=== PATIENT | male | born 1975 | race Caucasian/White ===

== ENCOUNTER 2021-02-14 16:56 | Emergency (ER) | payer MEDICARE, MEDICAID, SELFPAY ==
[2021-02-14 17:01] VITALS: BP 161/93; PULSE 81; RESP 20; TEMP 36.6; O2SAT 98
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
[2021-02-14 18:13] LABS: Bilirubin Negative (Negative); Blood Negative (Negative); Clarity Clear (Clear); Glucose Negative (Negative); Ketones Negative (Negative); Leukocyte Esterase Negative (Negative); Nitrite Negative (Negative); Urobilinogen 0.2 EU/dL (Up TO 0.2)
== END 2021-02-14 18:53 | disposition home or self-care (01) ==
PROVIDERS: Emergency Provider Physician Assistant
DX: N48.89 Other specified disorders of penis (principal); M79.672 Pain in left foot; K62.89 Other specified diseases of anus and rectum
CPT/HCPCS: 99283; 81003; 99282

== ENCOUNTER 2021-12-05 13:14 | Outpatient (REF) | payer MEDICARE, MEDICAID, SELFPAY ==
[2021-12-05 13:44] LABS: Bilirubin Negative (Negative); Blood Negative (Negative); Clarity Clear (Clear); Glucose Negative (Negative); Ketones Negative (Negative); Leukocyte Esterase Negative (Negative); Nitrite Negative (Negative); Specific Gravity 1.025 (1.005-1.025); Urobilinogen 0.2 EU/dL (Up TO 0.2)
== END 2021-12-05 13:15 | disposition home or self-care (01) ==
LOC: LBN 13:14
PROVIDERS: Visit Provider Psychiatry & Neurology Child & Adolescent Psychiatry
DX: F79 Unspecified intellectual disabilities (principal)
CPT/HCPCS: 81003

== ENCOUNTER 2021-12-08 15:45 | Inpatient (IN) | payer MEDICARE, MEDICAID, SELFPAY ==
[2021-12-08 15:50] VITALS: BP 129/88; PULSE 79; RESP 14; TEMP 36; O2SAT 94
--- NOTE | 2021-12-08 16:15 | DI.CT_ITS ---
Exam(s) CT HEAD WO EXAM: CT HEAD WO CLINICAL HISTORY: AMS. TECHNIQUE: Imaging Protocol: Axial computed tomography images with coronal and sagittal reformatted images were created and reviewed COMPARISON: No exams were available for comparison FINDINGS: The ventricular system is normal in appearance. No evidence of acute intracranial hemorrhage, mass effect, or midline shift. Note is made of poorly defined area decreased attenuation in the anterior temporal lobe on the left. This may represent an old infarct, however other etiologies including mass lesion or not excluded. Correlation with brain MRI including post contrast examination is recommended. The orbital structures are unremarkable. The temporal bone structures appear intact. Calvarium: Normal. Visualized Paranasal sinuses/Mastoids: Clear. IMPRESSION: Indeterminate low-attenuation anterior left temporal lobe focus. Mass not excluded. Additional eval uation with brain MRI including post contrast imaging recommended.. RADIATION DOSE DELIVERED: 1,953.35mGy.cm Total DLP 1,953.35mGy.cm Total DLP !Error CTDIvol DATA REPOSITORY: All CT scans at this facility are submitted to the National Radiology Data Registry (NRDR) Dose Index Registry (DIR) with the [employer] (A[employer]). RADIATION OPTIMIZATION: All CT scans at this facility use at least one of these dose optimization te chniques: automated exposure control; mA and/or kV adjustment per patient size (includes targeted exa ms where dose is matched to clinical indication); or iterative reconstruction.
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
[2021-12-08 16:50] LABS: Bilirubin Negative (Negative); Blood Negative (Negative); Clarity Clear (Clear); Glucose Negative (Negative); Ketones Negative (Negative); Leukocyte Esterase Negative (Negative); Nitrite Negative (Negative); Urobilinogen 0.2 EU/dL (Up TO 0.2)
[2021-12-08 16:57] LABS: Abs Immature Grans 0.02 10^3/uL (0.0-0.06); Absolute Basophil Count 0.04 10^3/uL (0.0-0.2); Absolute Eosinophil Count 0.34 10^3/uL (0.0-0.7); Absolute Lymphocyte Count 1.92 10^3/uL (1.2-3.4); Absolute Monocyte Count 0.57 10^3/uL (0.1-0.8); Absolute Neutrophil Count 3.75 10^3/uL (1.2-6.7); Basophils % 0.6; Eosinophils % 5.1; HCT 43.8 % (40.0-50.0); HGB 13.6 g/dL (13.5-17.5); Immature Grans % 0.3; Lymphocytes % 28.9; MCH 28.5 pg (27.0-33.0); MCHC 31.1 % (32.0-36.0); MCV 91.6 fL (80-95); MPV 9.4 fL (8.0-11.0); Monocytes % 8.6; Neutrophils % 56.5; Nucleated RBC 0 %; Platelet Count 308 10^3/uL (130-400); RBC 4.78 10^6/uL (4.36-5.78); RDW 13.3 % (11.8-14.1); RDW-SD 45.2 fL; WBC 6.64 10^3/uL (4.4-10.8)
[2021-12-08 16:59] LABS: Source Nasal/Nares
[2021-12-08 17:03] LABS: *AMPHETAMINES SCREEN URINE Negative (Negative); *BARBITURATES SCREEN URINE Negative (Negative); *BENZODIAZEPINES SCREEN URINE Negative (Negative); Cannabinoids THC Negative (Negative); Cocaine Screen,Urine Negative (Negative); METHADONE URINE SCREEN Negative (Negative); OPIATES URINE SCREEN Negative (Negative)
[2021-12-08 17:06] LABS: Tricyclic Antidepressants Negative (Negative)
[2021-12-08 17:15] LABS: ALT 37 U/L (16-63); AST 21 U/L (15-37); Albumin 3.9 g/dL (3.4-5.0); Alkaline Phosphatase 127 U/L (46-116); Anion Gap 6.6 mmol/L (3-11); BUN 20 mg/dL (7-18); Bilirubin, Total 0.3 mg/dL (0.2-1.0); CO2 29.4 mmol/L (21.0-32.0); CREATININE 0.9 mg/dL (0.70-1.30); Calcium 9.3 mg/dL (8.5-10.1); Chloride 102 mmol/L (98-107); Creatine Kinase 93 U/L (39-308); Glucose 99 mg/dL (74-106); Potassium 3.7 mmol/L (3.5-5.1); Sodium 138 mmol/L (136-145); TSH (W/Ref FT4) 2.62 uIU/mL (0.36-3.74); Total Protein 7.9 g/dL (6.4-8.2)
[2021-12-08 17:22] LABS: Acetaminophen < 2 ug/mL (10-30); Salicylate < 2.8 mg/dL (<2.8)
--- NOTE | 2021-12-08 17:23 | DI.VRAD_ITS ---
PROCEDURE INFORMATION: Exam: CT Head Without Contrast Exam date and time: 12/08/2021 5:02 PM Age: 46 years old Clinical indication: Altered mental status/memory loss; Patient HX: AMS TECHNIQUE: Imaging protocol: Computed tomography of the head without contrast. COMPARISON: No relevant prior studies available. FINDINGS: Brain: There is a 12 mm diameter area of decreased density within the inferior and anterior aspect of the left temporal cortex. Margins are ill-defined. There is no associated mass effect or midline shift.. No hemorrhage. Unremarkable white matter. Cerebral ventricles: No ventriculomegaly. 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 is incidentally noted. Paranasal sinuses: Visualized sinuses are unremarkable. No fluid levels. Mastoid air cells: Visualized mastoid air cells are well aerated. Bones/joints: Unremarkable. No acute fracture. Soft tissues: Unremarkable. IMPRESSION: Low-density lesion within the left temporal cortex possibly representing an area of old infarct. However, subacute infarct, neoplasm, or infection cannot be excluded. I recommend further evaluation with MRI. Dictated and Authenticated by: Ghassan Best MD. Ordering:MERYL Weiss MD
[2021-12-08 17:24] LABS: ETHANOL BLOOD < 3.0 mg/dL (<10)
[2021-12-08 17:38] LABS: COVID-19 PCR Negative (Negative)
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
[2021-12-08 21:17] VITALS: BP 127/70; PULSE 75; RESP 18; TEMP 36.7; O2SAT 99
[2021-12-08] MEDS: Haloperidol 1 MG TAB 3 MG PO (23:18)
[2021-12-08] MEDS: risperiDONE 1 MG TAB 3 MG PO (23:18)
[2021-12-08] MEDS: busPIRone 5 MG TAB PO (23:18)
[2021-12-08] MEDS: Melatonin 3 MG TAB 6 MG PO (23:18)
[2021-12-08 23:50] VITALS: BP 107/61; PULSE 65; RESP 18; TEMP 36.4; O2SAT 95
[2021-12-08 23:55] VITALS: BP 107/61; PULSE 65; RESP 18; TEMP 36.4; O2SAT 95
[2021-12-09] MEDS: Citalopram 20 MG TAB 40 MG PO ×2 (01:06→21:45)
[2021-12-09] MEDS: traZODone 100 MG TAB PO (01:06)
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
[2021-12-09 07:20] VITALS: BP 123/77; PULSE 65; RESP 20; TEMP 36.4; O2SAT 95
[2021-12-09] MEDS: Tacrolimus 0.5 MG CAP 1 MG PO ×2 (08:29→20:06)
[2021-12-09] MEDS: Omeprazole 20 MG CAPCR PO (08:29)
[2021-12-09] MEDS: busPIRone 5 MG TAB PO ×2 (08:30→20:08)
[2021-12-09] MEDS: Ferrous Sulfate 325 MG TAB PO (08:30)
[2021-12-09] MEDS: Haloperidol 1 MG TAB 3 MG PO ×3 (08:30→20:07)
[2021-12-09] MEDS: risperiDONE 1 MG TAB 3 MG PO ×2 (08:30→20:07)
[2021-12-09 08:38] VITALS: PULSE 65
[2021-12-09] MEDS: Acetaminophen 500 MG TAB PO (09:33)
[2021-12-09 15:28] VITALS: PULSE 71
[2021-12-09 16:05] VITALS: BP 126/80; PULSE 63; RESP 20; TEMP 36.3; O2SAT 98
--- NOTE | 2021-12-09 17:19 | W.PM.PROGNOT ---
Date of Service Date of service: 12/09/21 Time of Service: 17:19 Assessment and Plan Assessment and plan (1) Delusional thoughts: Status: Acute Assessment and plan: There is no evidence of an acute infection to suggest a toxic metabolic component. It is possible that we are witnessing the neuropsychiatric aspect of his tuberous sclerosis diagnosis and it is also possible that there is a behavioral component associated with change of residential environment. At this point, [facility]/mental health should be considering a disposition for him. Meanwhile, we will obtain an EEG and repeat his MRI of the brain. 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 Followed by neurology at [facility]. Obtain MRI, EEG. Will discuss with radiology if the MRI should be with contrast. 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 Not causing current issues. (4) Seizure disorder: Assessment and plan: As above Keep on tele to monitor for seizures, though likelihood of this is low. (5) Kidney transplant recipient: Status: Chronic Assessment and plan: Continue immunosuppressive therapy. No evidence of acute infection. (6) DVT prophylaxis: Status: Acute Assessment and plan: SC lovenox (7) Discharge planning issues: Status: Acute Assessment and plan: Full code [facility] client. Disposition by [facility] Subjective Subjective Interval history since last seen: Judd denies headache, dizziness, shortness of breath, nausea. At the same time, he does report R-sided chest pain which is reproducible with palpation. He also says that he feels like his lungs are not filling up with air, but yet he is not short of breath. He has not required oxygen. He has not had any behavioral outbursts. He has not had any seizures. I discussed the case with [facility] where the patient get his care, both from urology for the h/o tuberous sclerosis, and from nephrology/transplant for his h/o kidney transplant. The patient has a h/o seizure d/o with no known seizures in 20 years. Neurology feels it is plausible he could have delusional postictal state and that he would benefit from an MRI of the brain which he was supposed to have. The lucency seen on our MRI is not new and represents a tuber. It is also unlikely that the patient did not have delusions before as he has been on haldol and risperidone for a while. His current behavior could also be adjustment to a new [facility] home since he was released from encarceration on 11/27/21. Exam Narrative Exam Narrative: General: Pleasant middle-aged male with a speech impediment, A&Ox2, poor history provider, able to move all 4 extremities, calm, cooperative HEENT: EOMI, MMM Heart: RRR, no m/r/g Lungs: nonlabored breathing Abdomen: soft, nontender, nondistended Extremities: no edema BLEs Objective Last Vital Signs Temp 36.3 C L 12/09/21 16:05 Pulse 63 12/09/21 16:05 Resp 20 12/09/21 16:05 BP 126/80 12/09/21 16:05 Pulse Ox 98 12/09/21 16:05 Laboratory Results - last 24 hr 12/08/21 12/08/21 12/08/21 16:42 16:42 16:55 Salicylates < 2.8 Acetaminophen < 2 Ethyl Alcohol < 3.0 SARS-CoV-2 (PCR) Negative
--- NOTE | 2021-12-09 19:10 | CMPROGNOTE_ITS ---
- If Service Date Differs Date of service: 12/09/21 Time of Service: 19:10 Care Management Progress Note S/O: Judd was sitting up in bed when CM met with him. His guardian, Anitha, was in the room visiting. Judd reported that he feels safe at [facility], but that he has been having nightmares since he was in assisted. Per report, Judd was incarcerated for 9 months for simple assault and disorderly conduct. He started having delusions/hallucinations while incarcerated. His IDDS continuous pillowcase cutter, Nely Duckworth ([phone]), described how he has been claiming that a previous contracting support specialist member was his and at times he believed she had , among other things, all of which were not accurate. He was released on 11/27/21 into the care of IDDS, and has been living in a home which is staffed by [facility]. He has been displaying aggression and delusions since his release. He has been an IDDS client at [facility] since 1985. His care team had been attempting to secure psychiatric stabilization for Judd while he was incarcerated with no success. Referrals are pending at [facility], [facility] and [facility]. Once he is discharged from inpatient psychiatric stabilization, he will return to his staffed home in [place]. CM will continue to follow. A: Judd is a 46 year old male admitted to [facility] on 12/08/21 with delusional thoughts. P: Judd is voluntary, seeking inpatient psychiatric stabilization. Referrals have been sent to [facility], [facility], and [facility]. He will likely transport via [facility]. He will follow up with his PCP and discharge plan of care. CM will continue to follow.
--- NOTE | 2021-12-09 19:10 | PDOC.CMPRO ---
- If Service Date Differs Date of service: 12/09/21 Time of Service: 19:10 Care Management Progress Note S/O: Judd was sitting up in bed when CM met with him. His guardian, Anitha, was in the room visiting. Judd reported that he feels safe at [facility], but that he has been having nightmares since he was in longterm. Per report, Judd was incarcerated for 9 months for simple assault and disorderly conduct. He started having delusions/hallucinations while incarcerated. His IDDS case specialist, Nely Duckworth ([phone]), described how he has been claiming that a previous print support specialist member was his and at times he believed she had , among other things, all of which were not accurate. He was released on 11/27/21 into the care of IDDS, and has been living in a home which is staffed by [facility]. He has been displaying aggression and delusions since his release. He has been an IDDS client at [facility] since 1985. His care team had been attempting to secure psychiatric stabilization for Judd while he was incarcerated with no success. Referrals are pending at [facility], [facility] and [facility]. Once he is discharged from inpatient psychiatric stabilization, he will return to his staffed home in [place]. CM will continue to follow. A: Judd is a 46 year old male admitted to [facility] on 12/08/21 with delusional thoughts. P: Judd is voluntary, seeking inpatient psychiatric stabilization. Referrals have been sent to [facility], [facility], and [facility]. He will likely transport via [facility]. He will follow up with his PCP and discharge plan of care. CM will continue to follow.
--- NOTE | 2021-12-09 19:27 | CMSP_ITS ---
- If Service Date Differs Date of service: 12/09/21 Time of Service: 19:28 Care Management Safety Plan Status: Voluntary - Guarianship if Applicable Guardianship: [facility] (Anitha Harmon) - Reason for Wait Reason for Wait: Inpatient Admission VOLUNTARY FOR INPATIENT PSYCHIATRIC STABILIZATION. Patient is appropriate in all interactions since arriving at [facility]; Pt has demonstrated appropriate coping and communication skills, has articulated his or her needs and concerns and is fully engaged during staff interactions. Safety plan has been established with patient, and care team, to adhere to pat ient goals, identify restrictions based on behavioral status, address nutrition, and determine allowed personal belongings, tools for hygiene and personal care. Determine level of activity including ambulation, level of supervision, visitors, and determine privileges based on behaviors and level of engagement by pt. SAFETY PLAN: 1. Will remain on suicide precautions. In Paper Clothes 2. Will remain in room under direct supervision of one-on-one staff at all times provided by [employer]; JONA, GARMENT TURNER workforce investment act career manager. 3. May have paper cups, plates, finger foods as well as a cardboard spoon with which to eat meals. 4. Follow [facility] Management of the Admitted Behavioral Health Patient policy. 5. Comfort bath system only, shower permitted with escort at RN discretion. 6. Personal belongings-soft items permitted at RN discretion. 7. Visitors- limited to his guardian, Anitha Harmon, assistant case manager, Nely Duckworth, and other software support technician from [facility], at RN discretion. 8. Activities: soft cart items approved per RN discretion. 9. Bathroom privileges with escort in the ED, available in room without limitation on M/S. 10. Phone: incoming/outgoing via cordless phone at RN discretion. 11. Due to VOLUNTARY status, if patient wishes to leave [facility], staff will contact [facility] Crisis Screener ([phone]) and On-Call Earth Science Teacher ([phone]) as soon as possible. In the event of elopement, notify [facility] Police ([phone]). Patient is currently voluntarily at [facility] and seeking inpatient admission when a bed becomes available. [facility] Frontline Pierogi Maker will continue seeking placement. Please contact the [place] Waistline Joiner Earth Science Teacher ([phone]) and [facility] Pierogi Maker ([phone]) for any needed changes in the Safety Plan. Safety plan has been provided to interdepartmental care team.
--- NOTE | 2021-12-09 19:27 | PDOC.CMSAFE ---
- If Service Date Differs Date of service: 12/09/21 Time of Service: 19:28 Care Management Safety Plan Status: Voluntary - Guarianship if Applicable Guardianship: OPG (Anitha Harmon) - Reason for Wait Reason for Wait: Inpatient Admission VOLUNTARY FOR INPATIENT PSYCHIATRIC STABILIZATION. Patient is appropriate in all interactions since arriving at [facility]; Pt has demonstrated appropriate coping and communication skills, has articulated his or her needs and concerns and is fully engaged during staff interactions. Safety plan has been established with patient, and care team, to adhere to patient goals, identify restrictions based on behavioral status, address nutrition, and determine allowed personal belongings, tools for hygiene and personal care. Determine level of activity including ambulation, level of supervision, visitors, and determine privileges based on behaviors and level of engagement by pt. SAFETY PLAN: 1. Will remain on suicide precautions. In Paper Clothes 2. Will remain in room under direct supervision of one-on-one staff at all times provided by [employer]; JONA, PATIENT COORDINATOR supervisor inspecting. 3. May have paper cups, plates, finger foods as well as a cardboard spoon with which to eat meals. 4. Follow [facility] Management of the Admitted Behavioral Health Patient policy. 5. Comfort bath system only, shower permitted with escort at RN discretion. 6. Personal belongings-soft items permitted at RN discretion. 7. Visitors- limited to his guardian, Anitha Harmon, caser, Nely Duckworth, and other manufacturing support engineer from [facility], at RN discretion. 8. Activities: soft cart items approved per RN discretion. 9. Bathroom privileges with escort in the ED, available in room without limitation on M/S. 10. Phone: incoming/outgoing via cordless phone at RN discretion. 11. Due to VOLUNTARY status, if patient wishes to leave [facility], staff will contact [facility] Crisis Screener ([phone]) and On-Call Freight Tallier ([phone]) as soon as possible. In the event of elopement, notify [facility] Police ([phone]). Patient is currently voluntarily at [facility] and seeking inpatient admission when a bed becomes available. [facility] Frontline Manager Assisted Living will continue seeking placement. Please contact the Dough Mixing Machine Operator Freight Tallier ([phone]) and [facility] Manager Assisted Living ([phone]) for any needed changes in the Safety Plan. Safety plan has been provided to interdepartmental care team.
[2021-12-09] MEDS: Mycophenolate Mofetil 250 MG CAP PO (20:08)
[2021-12-09] MEDS: LORazepam 1 MG TAB PO (21:44)
[2021-12-09] MEDS: Prazosin 1 MG CAP 2 MG PO (21:45)
[2021-12-09] MEDS: traZODone 50 MG TAB 100 MG PO (21:45)
[2021-12-10] VITALS (10 sets, daily range): BP systolic 105–123; BP diastolic 67–82; PULSE 55–85; RESP 14–19; TEMP 35.9–36.7; O2SAT 94–98
[2021-12-10 07:33] LABS: Platelet Count 278 10^3/uL (130-400)
[2021-12-10] MEDS: Acetaminophen 500 MG TAB PO ×2 (08:22→15:42)
[2021-12-10] MEDS: Enoxaparin 40 MG/0.4 ML SYR SC (08:23)
[2021-12-10] MEDS: busPIRone 5 MG TAB PO ×2 (08:23→20:26)
[2021-12-10] MEDS: Ferrous Sulfate 325 MG TAB PO (08:24)
[2021-12-10] MEDS: Haloperidol 1 MG TAB 3 MG PO ×3 (08:24→20:26)
[2021-12-10] MEDS: risperiDONE 1 MG TAB 3 MG PO ×2 (08:25→20:26)
[2021-12-10] MEDS: Mycophenolate Mofetil 250 MG CAP PO ×2 (08:25→20:25)
[2021-12-10] MEDS: LORazepam 0.5 MG TAB PO ×3 (08:25→19:35)
[2021-12-10] MEDS: Omeprazole 20 MG CAPCR PO (08:25)
[2021-12-10] MEDS: Tacrolimus 0.5 MG CAP 1 MG PO (08:26)
--- NOTE | 2021-12-10 12:31 | PDOC.CMPRO ---
- If Service Date Differs Date of service: 12/10/21 Time of Service: 12:31 Care Management Progress Note S/O: Judd was sitting up in bed when CM met with him. He stated that he is doing well today. He asked if he would be going to a hospital in [place]. CM reported that per MD, he is not medically cleared at this time. Once he becomes medically cleared, he will likely transport to an inpatient psychiatric facility, but the disposition has not yet been determined. He expressed concern about being homeless, and CM reassured him that per [facility], he will not be homeless, as they have a plan for housing once he is ready to return to the community. He stated that he liked the magazines that CM brought in to him yesterday, and he has not used the coloring book. He is keeping himself busy with cartoons currently. CM will continue to follow. A: Judd is a 46 year old male admitted to [facility] on 12/08/21 with delusional thoughts. P: Judd is voluntary, seeking inpatient psychiatric stabilization. Referrals have been sent to [facility], [facility], and [facility]. He will likely transport via [employer]. He will follow up with his PCP and discharge plan of care. CM will continue to follow. - Guardianship if Applicable Guardianship: EMILIANO (Anitha Harmon)
--- NOTE | 2021-12-10 12:34 | CMSP_ITS ---
- If Service Date Differs Date of service: 12/10/21 Time of Service: 12:35 Care Management Safety Plan Status: Voluntary - Guarianship if Applicable Guardianship: OPG (Anitha Harmon) - Reason for Wait Reason for Wait: Inpatient Admission, Medical Clearance (MRI, EEG on Saturday) VOLUNTARY FOR INPATIENT PSYCHIATRIC STABILIZATION. Patient is appropriate in all interactions since arriving at [facility]; Pt has demonstrated appropriate coping and communication skills, has articulated his or her needs and concerns and is fully engaged during staff interactions. Safety plan has been established with patient, and care team, to adhere to patient goals, identify restrictions based on behavioral status, address nutrition, and determine allowed personal belongings, tools for hygiene and personal care. Determine level of activity including ambulation, level of supervision, visitors, and determine privileges based on behaviors and level of engagement by pt. SAFETY PLAN: 1. Will remain on suicide precautions. In Paper Clothes 2. Will remain in room under direct supervision of one-on-one staff at all times provided by [employer]; JONA, RISK MODELER air cargo specialist supervisor. 3. May have paper cups, plates, finger foods as well as a cardboard spoon with which to eat meals. 4. Follow [facility] Management of the Admitted Behavioral Health Patient policy. 5. Comfort bath system only, shower permitted with escort at RN discretion. 6. Personal belongings-soft items permitted at RN discretion. 7. Visitors- limited to his guardian, Anitha Harmon, case aide, Nely Duckworth, and other administrative support technician from [facility], at RN discretion. 8. Activities: soft cart items approved per RN discretion. 9. Bathroom privileges with escort in the ED, available in room without limitation on M/S. 10. Phone: incoming/outgoing via cordless phone at RN discretion. 11. Due to VOLUNTARY status, if patient wishes to leave [facility], staff will contact [facility] Crisis Screener ([phone]) and On-Call Mental Health Counselor ([phone]) as soon as possible. In the event of elopement, notify [place] [employer] ([phone]). Patient is currently voluntarily at [facility] and seeking inpatient admission when a bed becomes available. [facility] Frontline Restaurant Management Internship will continue seeking placement. Please contact the User Interface Developer Mental Health Counselor ([phone]) and [facility] Restaurant Management Internship ([phone]) for any needed changes in the Safety Plan. Safety plan has been provided to interdepartmental care team.
--- NOTE | 2021-12-10 15:51 | W.PM.PROGNOT ---
Date of Service Date of service: 12/10/21 Time of Service: 15:52 Assessment and Plan Assessment and plan (1) Delusional thoughts: Status: Acute Assessment and plan: There is no evidence of an acute infection to suggest a toxic metabolic component. ? neuropsychiatric aspect of his tuberous sclerosis diagnosis vs post-ictal state vs a behavioral component associated with change of residential environment. This has been going for several months. Await EEG, MRI, neurology consult. At this point, [facility]/mental health should be considering a disposition for him. 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 Followed by neurology at [facility]. Obtain MRI, EEG. Await neurology consult. 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 Not causing current issues. (4) Seizure disorder: Assessment and plan: As above Keep on tele to monitor for seizures, though likelihood of this is low. For EEG. (5) Kidney transplant recipient: Status: Chronic Assessment and plan: Continue immunosuppressive therapy. Checking tacrolimus level. No evidence of acute infection. (6) DVT prophylaxis: Status: Acute Assessment and plan: SC lovenox (7) Discharge planning issues: Status: Acute Assessment and plan: Full code [facility] client. Disposition by [facility] Subjective Subjective Interval history since last seen: Mr Corey reports pains in various parts of his body (R knee, R shoulder, R chest). He agrees to take tylenol. Denies dizziness, shortness of breath, nausea. Exam Narrative Exam Narrative: General: Pleasant middle-aged male with a speech impediment, A&Ox2, appears to be in good spirits, asks appropriate questions about his tests tomorrow HEENT: EOMI, MMM, poor dentition Heart: RRR, no m/r/g Lungs: CTAB Abdomen: soft, nontender, nondistended Extremities: no edema BLEs Objective Last Vital Signs Temp 36.6 C 12/10/21 11:53 Pulse 66 12/10/21 11:53 Resp 16 12/10/21 11:53 BP 108/69 12/10/21 11:53 Pulse Ox 97 12/10/21 11:53 Laboratory Results - last 24 hr 12/10/21 07:00 Plt Count 278
[2021-12-10] MEDS: Tacrolimus 0.5 MG CAP 2 MG PO (20:26)
[2021-12-10] MEDS: diphenhydrAMINE 25 MG CAP PO (20:26)
[2021-12-10] MEDS: traZODone 50 MG TAB 100 MG PO (22:46)
[2021-12-10] MEDS: Prazosin 1 MG CAP 2 MG PO (22:46)
[2021-12-10] MEDS: Citalopram 20 MG TAB 40 MG PO (22:47)
[2021-12-10] MEDS: LORazepam 1 MG TAB PO (22:47)
[2021-12-11 07:40] VITALS: BP 132/84; PULSE 82; RESP 24; TEMP 36.7; O2SAT 96
[2021-12-11] MEDS: Acetaminophen 500 MG TAB PO ×2 (07:59→13:05)
[2021-12-11] MEDS: busPIRone 5 MG TAB PO ×2 (08:00→19:35)
[2021-12-11] MEDS: Enoxaparin 40 MG/0.4 ML SYR SC (08:00)
[2021-12-11] MEDS: Haloperidol 1 MG TAB 3 MG PO ×3 (08:01→19:35)
[2021-12-11] MEDS: Ferrous Sulfate 325 MG TAB PO (08:01)
[2021-12-11] MEDS: risperiDONE 1 MG TAB 3 MG PO ×2 (08:02→19:35)
[2021-12-11] MEDS: Omeprazole 20 MG CAPCR PO (08:02)
[2021-12-11] MEDS: LORazepam 0.5 MG TAB PO ×4 (08:02→18:52)
[2021-12-11] MEDS: Tacrolimus 0.5 MG CAP 1 MG PO (08:03)
[2021-12-11] MEDS: Mycophenolate Mofetil 250 MG CAP PO ×2 (08:04→19:34)
[2021-12-11 13:37] LABS: Tacrolimus 2.6 ng/mL (See Note)
--- NOTE | 2021-12-11 14:45 | PDOC.EEG_ITS ---
Neurology EEG EEG: [facility] Department of Neurology INPATIENT EEG REPORT Date of Recordin12/11/21 Interpreting Physician: Dr. Lyly Wells Reason for study: Mr. Corey is a 46 year-old man with tuberous sclerosis, cognitive developmental delay, and remote seizures admitted with increasing delusions/hallucinations. Current Medications: Current Medications Acetaminophen (Acetaminophen 500 Mg Tab) 500 mg PO TID PRN PRN Last Admin: 12/11/21 13:05 Dose: 500 mg Buspirone HCl (Buspirone 5 Mg Tab) 5 mg PO BID [facility] Last Admin: 12/11/21 08:00 Dose: 5 mg Citalopram Hydrobromide (Citalopram 20 Mg Tab) 40 mg PO HS [facility] Last Admin: 12/10/21 22:47 Dose: 40 mg Enoxaparin Sodium (Enoxaparin 40 Mg/0.4 Ml Syr) 40 mg SC DAILY [facility] Last Admin: 12/11/21 08:00 Dose: 40 mg Ferrous Sulfate (Ferrous Sulfate 325 Mg Tab) 325 mg PO DAILY [facility] Last Admin: 12/11/21 08:01 Dose: 325 mg Haloperidol (Haloperidol 1 Mg Tab) 3 mg PO TID [facility] Last Admin: 12/11/21 13:05 Dose: 3 mg Lactase (Lactase Enzyme Cap) 1 cap PO TID PRN PRN Lidocaine (Lidocaine 5% Patch) 1 patch TD DAILY PRN PRN Lorazepam (Lorazepam 1 Mg Tab) 1 mg PO HS [facility] Last Admin: 12/10/21 22:47 Dose: 1 mg Lorazepam (Lorazepam 0.5 Mg Tab) 0.5 mg PO BID@0830,1200 [facility] Last Admin: 12/11/21 13:05 Dose: 0.5 mg Lorazepam (Lorazepam 0.5 Mg Tab) 0.5 mg PO BID PRN PRN Last Admin: 12/11/21 13:05 Dose: 0.5 mg Melatonin (Melatonin 3 Mg Tab) 6 mg PO HS PRN PRN Mycophenolate Mofetil (Mycophenolate Mofetil 250 Mg Cap) 250 mg PO BID [facility] Last Admin: 12/11/21 08:04 Dose: 250 mg Omeprazole (Omeprazole 20 Mg Capcr) 20 mg PO DAILY@0730 [facility] Last Admin: 12/11/21 08:02 Dose: 20 mg Prazosin HCl (Prazosin 1 Mg Cap) 2 mg PO HS [facility] Last Admin: 12/10/21 22:46 Dose: 2 mg Risperidone (Risperidone 1 Mg Tab) 3 mg PO BID [facility] Last Admin: 12/11/21 08:02 Dose: 3 mg Tacrolimus (Tacrolimus 0.5 Mg Cap) 1 mg PO DAILY [facility] Last Admin: 12/11/21 08:03 Dose: 1 mg Tacrolimus (Tacrolimus 0.5 Mg Cap) 2 mg PO QPM [facility] Last Admin: 12/10/21 20:26 Dose: 2 mg Trazodone HCl (Trazodone 50 Mg Tab) 100 mg PO HS [facility] Last Admin: 12/10/21 22:46 Dose: 100 mg METHODS: A 21 channel digitized electroencephalogram was performed in the [facility] Med/Surg Floor or ICU. The 10/20 international system of electrode placement was used and bipolar and referential electrode montages were recorded. In addition to EEG the patient was monitored for EKG and lateral/vertical eye movements. Activation procedures of photic stimulation and hyperventilation were performed if applicable. Video was used during activation procedures and during events where applicable. The duration of the recording was 30 minutes. DESCRIPTION OF EEG: The patient was noted to be awake only during the recording. During maximal wakefulness a 9-Hz posterior background rhythm was present which was well- modulated, symmetrical, reactive to eye opening, and of moderate voltage. With eye opening the background activity changed to a low voltage mixture of alpha, beta, and occasional theta range frequencies. Faster frequencies were present in the bilateral anterior head regions. There was a normal anterior-posterior voltage gradient. No drowsiness or stage II sleep was recorded. There were rare left frontal, low amplitude, sharp-waves at F7. These were not clearly epileptiform. Activating Procedures: Photic stimulation was stopped early at patient request. No driving response was seen. Hyperventilation was not performed. EKG: EKG revealed normal sinus rhythm. INTERPRETATION: This EEG is normal during the awake state as well as during photic stimulation. There were rare left frontal sharp-waves that were not clearly epileptic. PRIOR EEG: -EEG (02.17.15 at [facility]): diffuse slowing. CLINICAL CORRELATION: No focal regions of cerebral dysfunction or epileptiform activity was present. Epilepsy remains a clinical diagnosis and a normal EEG does not rule out epilepsy. Clinical correlation is advised. Lyly Wells MD
--- NOTE | 2021-12-11 15:08 | PGE_ITS ---
Date of Service Date of service: 12/11/21 Time of Service: 15:09 Assessment and Plan Assessment and plan (1) Delusional thoughts: Status: Acute Assessment and plan: There is no evidence of an acute infection to suggest a toxic metabolic component. ? neuropsychiatric aspect of his tuberous sclerosis diagnosis vs post-ictal state vs a behavioral component associated with change of residential environment. This has been going for several months. Await EEG, Neuro consult. MRI; inquiry being made to bilingual patient support caseworker to see if there are contraindications to an MRI; patient is not a reliable historian. At this point, [facility]/mental health should be considering a disposition for him. 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 Followed by neurology at [facility]. Obtain MRI, EEG. Await neurology consult. 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 Not causing current issues. (4) Seizure disorder: Assessment and plan: As above Keep on tele to monitor for seizures, though likelihood of this is low. EEG pending. (5) Kidney transplant recipient: Status: Chronic Assessment and plan: Continue immunosuppressive therapy. Tacrolimus level 2.6. No evidence of acute infection. (6) DVT prophylaxis: Status: Acute Assessment and plan: SC lovenox (7) Discharge planning issues: Status: Acute Assessment and plan: Full code [facility] client. Disposition by [facility] Subjective Subjective Patient reports: no new complaints, tolerating a regular diet and afebrile; denies nausea, vomiting or shortness of breath Exam Narrative Exam Narrative: General: Pleasant at the time of my visit. Lying in bed. + speech impediment, A&Ox2, appears to be in good spirits. HEENT: EOMI, MMM, poor dentition Heart: RRR, no m/r/g Lungs: CTAB Abdomen: soft, nontender, nondistended Skin: no rashes, lesions, RLQ well-healed surgical scar. Extremities: no edema BLEs Psych: affect; blunted. Poor insight. GI Palpation: no masses Objective Last Vital Signs Temp 36.7 C 12/11/21 07:40 Pulse 82 12/11/21 07:40 Resp 24 12/11/21 07:40 BP 132/84 12/11/21 07:40 Pulse Ox 96 12/11/21 07:40 Laboratory Results - last 24 hr 12/10/21 07:00 Tacrolimus 2.6
[2021-12-11 15:25] VITALS: BP 122/78; PULSE 63; RESP 22; TEMP 36.5; O2SAT 95
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
--- NOTE | 2021-12-11 17:26 | CMSP_ITS ---
- If Service Date Differs Date of service: 12/11/21 Time of Service: 17:26 Care Management Safety Plan Status: Voluntary - Guarianship if Applicable Guardianship: OPG (Anitha Harmon) - Reason for Wait Reason for Wait: Inpatient Admission, Community Placement VOLUNTARY FOR INPATIENT PSYCHIATRIC STABILIZATION. Patient is appropriate in all interactions since arriving at [facility]; Pt has demonstrated appropriate coping and communication skills, has articulated his or her needs and concerns and is fully engaged during staff interactions. Judd will have two learning support services director from [facility] IDDS in his room from 7am-11pm. Nely Duckworth, [facility] patient case coordinator ([phone]) is coordinating the learning support services director, and needs to be updated as his plan develops. Anitha Harmon, guardian ([phone]), needs to be updated on any changes in plan as well. Safety plan has been established with patient, and care team, to adhere to patient goals, identify restrictions based on behavioral status, address nutrition, and determine allowed personal belongings, tools for hygiene and personal care. Determine level of activity including ambulation, level of supervision, visitors, and determine privileges based on behaviors and level of engagement by pt. SAFETY PLAN: 1. Will remain on suicide precautions. In Paper Clothes 2. Will remain in room under direct supervision of one-on-one staff at all times provided by [employer]; JONA, MANAGER PRINTING senior software systems engineer. 3. May have paper cups, plates, finger foods as well as a cardboard spoon with which to eat meals. 4. Follow [facility] Management of the Admitted Behavioral Health Patient policy. 5. Comfort bath system only, shower permitted with escort at RN discretion. 6. Personal belongings-soft items permitted at RN discretion. 7. Visitors- limited to his guardian, Anitha Harmon, patient case coordinator, eNly Duckworth, and other learning support services director from [facility], at RN discretion. 8. Activities: soft cart items approved per RN discretion. 9. Bathroom privileges with escort in the ED, available in room without limitation on M/S. 10. Phone: incoming/outgoing via cordless phone at RN discretion. 11. Due to VOLUNTARY status, if patient wishes to leave [facility], staff will contact [facility] Crisis Screener ([phone]) and On-Call Bindery Worker ([phone]) as soon as possible. In the event of elopement, notify [facility] Police ([phone]). Patient is currently voluntarily at [facility] and seeking inpatient admission when a bed becomes available. [facility] Frontline Service Person will continue seeking placement. Please contact the Customer Service Supervisor Bindery Worker ([phone]) and [facility] Service Person ([phone]) for any needed changes in the Safety Plan. Safety plan has been provided to interdepartmental care team.
--- NOTE | 2021-12-11 17:26 | PDOC.CMSAFE ---
- If Service Date Differs Date of service: 12/11/21 Time of Service: 17:26 Care Management Safety Plan Status: Voluntary - Guarianship if Applicable Guardianship: OPG (Anitha Harmon) - Reason for Wait Reason for Wait: Inpatient Admission, Community Placement VOLUNTARY FOR INPATIENT PSYCHIATRIC STABILIZATION. Patient is appropriate in all interactions since arriving at [facility]; Pt has demonstrated appropriate coping and communication skills, has articulated his or her needs and concerns and is fully engaged during staff interactions. Judd will have two mining support worker from [facility] IDDS in his room from 7am-11pm. Nely Duckworth, [facility] casework supervisor ([phone]) is coordinating the mining support worker, and needs to be updated as his plan develops. Anitha Harmon, guardian ([phone]), needs to be updated on any changes in plan as well. Safety plan has been established with patient, and care team, to adhere to patient goals, identify restrictions based on behavioral status, address nutrition, and determine allowed personal belongings, tools for hygiene and personal care. Determine level of activity including ambulation, level of supervision, visitors, and determine privileges based on behaviors and level of engagement by pt. SAFETY PLAN: 1. Will remain on suicide precautions. In Paper Clothes 2. Will remain in room under direct supervision of one-on-one staff at all times provided by [employer]; JONA, FAMILY SERVICE COUNSELOR sueding and buffing machine operator. 3. May have paper cups, plates, finger foods as well as a cardboard spoon with which to eat meals. 4. Follow [facility] Management of the Admitted Behavioral Health Patient policy. 5. Comfort bath system only, shower permitted with escort at RN discretion. 6. Personal belongings-soft items permitted at RN discretion. 7. Visitors- limited to his guardian, Anitha Harmon, casework supervisor, Nely Duckworth, and other mining support worker from [facility], at RN discretion. 8. Activities: soft cart items approved per RN discretion. 9. Bathroom privileges with escort in the ED, available in room without limitation on M/S. 10. Phone: incoming/outgoing via cordless phone at RN discretion. 11. Due to VOLUNTARY status, if patient wishes to leave [facility], staff will contact [facility] Crisis Screener ([phone]) and [employer] Board Of Directors ([phone]) as soon as possible. In the event of elopement, notify [facility] Police ([phone]). Patient is currently voluntarily at [facility] and seeking inpatient admission when a bed becomes available. [facility] Frontline Manager Cash will continue seeking placement. Please contact the [employer] Board Of Directors ([phone]) and [facility] Manager Cash ([phone]) for any needed changes in the Safety Plan. Safety plan has been provided to interdepartmental care team.
--- NOTE | 2021-12-11 17:33 | PDOC.CMPRO ---
- If Service Date Differs Date of service: 12/11/21 Time of Service: 17:33 Care Management Progress Note S/O: CM was called to visit with Judd as he began to escalate this afternoon. Judd was attempting to wander into other patient's rooms, looking for his . Per [facility], a common delusion of his is that he is to a staff worker who no longer works with him. CM attempted to redirect Judd, who was throwing items in his room, and was fixated on talking to his . He was able to be redirected by staff, and participated in an EEG. Later, he had a neurology consult, and was seen by the hospitalist, who has now medically cleared him. [facility] will seek voluntary inpatient psychiatric placement. CM updated his guardian, Anitha, as well as his child welfare caseworker, Nely, of the plan to resume seeking placement once he is medically cleared (which he was late in the afternoon). CM also stated that Judd's support through [facility] IDDS may be a barrier to placement, as he is wrapped in support in the community. If he is not accepted for inpatient psychiatric treatment, he will be returned to the custody of [facility], in his staffed home in [place]. Nely Duckworth and Anitha Harmon have both expressed understanding of this plan. Judd's father, Jean Carlos, visited today. He is identified as a support from Anitha, his guardian. CM will continue to follow. A: Judd is a 46 year old male admitted to [facility] on 12/08/21 with delusional thoughts. P: Judd is voluntary, seeking inpatient psychiatric stabilization. Referrals have been sent to [facility], [place], [facility], and [facility]. He will likely transport via [employer]. He will follow up with his PCP and discharge plan of care. CM will continue to follow. - Status Status: Voluntary - Guardianship if Applicable Guardianship: OPG (Anitha Harmon) - Reason for Wait Reason for Wait: Inpatient Admission, Community Placement
[2021-12-11] MEDS: Haloperidol 5 MG/ML VIAL (18:45)
[2021-12-11] MEDS: Haloperidol 5 MG/ML VIAL IM (18:50)
[2021-12-11] MEDS: Tacrolimus 0.5 MG CAP 2 MG PO (19:35)
[2021-12-11 19:44] VITALS: BP 163/94; PULSE 78; RESP 22; TEMP 36.7; O2SAT 97
[2021-12-11] MEDS: diphenhydrAMINE 25 MG CAP 50 MG PO (22:13)
[2021-12-11] MEDS: traZODone 50 MG TAB 100 MG PO (22:13)
[2021-12-11] MEDS: Prazosin 1 MG CAP 2 MG PO (22:13)
[2021-12-11] MEDS: Citalopram 20 MG TAB 40 MG PO (22:13)
[2021-12-11] MEDS: LORazepam 1 MG TAB PO (22:14)
[2021-12-12] MEDS: Melatonin 3 MG TAB 6 MG PO (00:08)
[2021-12-12] MEDS: LORazepam 0.5 MG TAB PO (00:08)
--- NOTE | 2021-12-12 00:38 | NUR.NOTE ---
Nursing Note: Pt agitated and is not easily redirected. He was throwing stuffed animals at staff and was not re-directable. He was given 0.5 mg of ativan and melatonin. Pt states and is very adamant that he wants to go home. He was encouraged by multiple staff to try to lay in bed, we could figure out a discharge plan for him tomorrow. Pt still resistant to staying and wants to go home. We are not able to keep him here involuntarily. He was given his belongings and was escorted out the entrance.
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
== END 2021-12-12 00:32 | disposition left against medical advice (07) | DRG 885 ==
LOC: ER 23:16 → MS 23:40
PROVIDERS: Internal Medicine; Admitting Provider Family Medicine; Emergency Provider Nurse Practitioner Family; Visit Provider Family Medicine
DX: F22 Delusional disorders (principal); Z94.0 Kidney transplant status; Q85.1 Tuberous sclerosis; Q04.8 Other specified congenital malformations of brain; D84.821 Immunodeficiency due to drugs; F79 Unspecified intellectual disabilities; G40.909 Epilepsy, unspecified, not intractable, without status epilepticus
CPT/HCPCS: 36415; 80053; 80307; 82550; 87635; 99223; 99285; J1650; 70450; 80197; 80320; 80329; 81003; 84443; 85025; 85049; 95816; 99222; 99232; 99239; J1630; J3490; J7517

== ENCOUNTER → 2021-12-11 07:26 | Outpatient (BNVA) | payer MEDICARE, MEDICAID, SELFPAY | PROVIDERS: Visit Provider Psychiatry & Neurology Neurology | DX: R69 Illness, unspecified (principal) ==

== ENCOUNTER 2021-12-12 12:42 | Emergency (ER) | payer MEDICARE, MEDICAID, SELFPAY ==
[2021-12-12 13:12] VITALS: BP 130/85; PULSE 84; RESP 16; TEMP 36.8; O2SAT 98
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
[2021-12-12 14:39] LABS: Source Nasal/Nares
--- NOTE | 2021-12-12 15:12 | PDOC.MHCN ---
Date of service: 12/12/21 Time of Service: 15:12 Mental Health Crisis Note Presenting Issue How did you arrive at the ED and why did you come: Pt arrived via his customer support coordinator for suicidal ideation with plan and intent. Precipitating Factors Pt self-reported his risk level a 10/10 with plan to shoot himself. He is experiencing auditory and visual hallucinations. Disposition BEHAVIOR: Pt is currently cooperative however, he has a known history of becoming aggressive at times without warning and other times with. EYE CONTACT: good MOOD: Depressed tired. AFFECT: Congruent APPETITE: Pt is eating well. SLEEP(trouble falling/staying asleep: Pt has not slept more than an hour in the last 24 hours. Plan Pt placed on EE status and will remain at [facility] pending his second certification. He will be screened twice daily by [facility] until placement is found should his second certification go through. Signature Clinician's Name/Title: Gabriela Mehta MS, [facility] Emergency Services Clinician, [facility]
[2021-12-12 15:18] LABS: COVID-19 PCR Negative (Negative)
--- NOTE | 2021-12-12 15:53 | CMSP_ITS ---
- If Service Date Differs Date of service: 12/12/21 Time of Service: 15:53 Care Management Safety Plan Status: Involuntary - Guarianship if Applicable Guardianship: OPG (Anitha Vargas) - Reason for Wait Reason for Wait: Inpatient Admission INVOLUNTARY FOR INPATIENT PSYCHIATRIC STABILIZATION EE Status, 2nd Certification will occur after 5pm. 1535 Huddle was held with Gabriela/[facility], Kalpana/RN supervisor filling and packing, Dr. Dueñas and Kiki/FELICITY. Td continues to have visual and auditory hallucinations. He is triggered by the word No, avoid verbiage if possible, instead offer options. Judd will have 1:1 CPSO at all times. Td will also have 1:1 direct support specialist from [facility] IDDS in his room 25/03. IDDS staff may take 15 minute breaks as needed and will communicate leave to CPSO. Nely Duckworth, [facility] case planner ([phone]) is coordinating the direct support specialist, and needs to be updated as his plan develops. ugo Clifford ([phone]), needs to be updated on any changes in plan as well. Safety plan has been established to meet the needs of the patient, and consideration of the care team, to adhere to patient goals, identify restrictions based on behavioral status, address nutrition, and determine allowed personal belongings, tools for hygiene and personal care. Determine level of activity including ambulation, level of supervision, visitors, and determine privileges based on behaviors and level of engagement by pt. SAFETY PLAN: 1. Will remain on SI/HI precautions. In Paper Clothes 2. Will remain in room under direct supervision of one-on-one staff at all times provided by CPSO; JONA, PHAM boat cleaning supervisor. 3. May have paper cups, plates, finger foods as well as a cardboard spoon 4. Follow [facility] Management of the Admitted Behavioral Health Patient policy. 5. Comfort bath system only. 6. No personal belongings, other than Khoi Bear from Home, at RN discretion. 7. Visitors: limited to his guardian, Anitha Harmon, case planner, Nely Duckworth, and other direct support specialist from [facility], at RN discretion. 8. Activities: Soft cart items at RN discretion. 9. Bathroom privileges with supervision 10. Phone: None at this time 11. Due to INVOLUNTARY status, patient is being held at [facility] by the Department of Mental Health ([facility]) until 2nd certification by [facility] Psychiatrist can be performed (within 24 hours). Staff will provide de-escalation support (CPI) as needed. If patient wishes to leave [facility], staff will contact [facility] Crisis Screener ([phone]) and On-Call Senior Paralegal ([phone]) as soon as possible. In the event of elopement, notify [facility] Police ([phone]). Patient is currently involuntarily at [facility]. [facility] Frontline End Worker will continue seeking placement. Please contact the Lathe Mechanic Senior Paralegal ([phone]) for any needed changes to Safety Plan. Safety plan has been provided to interdepartmental care team. Patient will be transported by ict project manager at time of discharge.
--- NOTE | 2021-12-12 15:53 | PDOC.CMSAFED ---
- If Service Date Differs Date of service: 12/12/21 Time of Service: 15:53 Care Management Safety Plan Status: Involuntary - Guarianship if Applicable Guardianship: OPG (Anitha Vargas) - Reason for Wait Reason for Wait: Inpatient Admission INVOLUNTARY FOR INPATIENT PSYCHIATRIC STABILIZATION EE Status, 2nd Certification will occur after 5pm. 1535 Huddle was held with Gabriela/[facility], Kalpana/RN cistern room working supervisor, Dr. Dueñas and Kiki/FELICITY. Td continues to have visual and auditory hallucinations. He is triggered by the word No, avoid verbiage if possible, instead offer options. Judd will have 1:1 CPSO at all times. Td will also have 1:1 office support specialist from [facility] IDDS in his room 25/03. IDDS staff may take 15 minute breaks as needed and will communicate leave to CPSO. Nely Duckworth, [facility] insurance case manager ([phone]) is coordinating the office support specialist, and needs to be updated as his plan develops. ugo Clifford ([phone]), needs to be updated on any changes in plan as well. Safety plan has been established to meet the needs of the patient, and consideration of the care team, to adhere to patient goals, identify restrictions based on behavioral status, address nutrition, and determine allowed personal belongings, tools for hygiene and personal care. Determine level of activity including ambulation, level of supervision, visitors, and determine privileges based on behaviors and level of engagement by pt. SAFETY PLAN: 1. Will remain on SI/HI precautions. In Paper Clothes 2. Will remain in room under direct supervision of one-on-one staff at all times provided by CPSO; JONA, PHAM slot floor supervisor. 3. May have paper cups, plates, finger foods as well as a cardboard spoon 4. Follow [facility] Management of the Admitted Behavioral Health Patient policy. 5. Comfort bath system only. 6. No personal belongings, other than Khoi Bear from Home, at RN discretion. 7. Visitors: limited to his guardian, Antiha Harmon, insurance case manager, Nely Duckworth, and other office support specialist from [facility], at RN discretion. 8. Activities: Soft cart items at RN discretion. 9. Bathroom privileges with supervision 10. Phone: None at this time 11. Due to INVOLUNTARY status, patient is being held at [facility] by the Department of Mental Health ([facility]) until 2nd certification by [facility] Psychiatrist can be performed (within 24 hours). Staff will provide de-escalation support (CPI) as needed. If patient wishes to leave [facility], staff will contact [facility] Crisis Screener ([phone]) and On-Call Supervisor [employer]ges [employer] Buildings ([phone]) as soon as possible. In the event of elopement, notify [facility] Police ([phone]). Patient is currently involuntarily at [facility]. [facility] Frontline Train Electronic Technician will continue seeking placement. Please contact the Supervisor Network Control Operators Supervisor [employer] ([phone]) for any needed changes to Safety Plan. Safety plan has been provided to interdepartmental care team. Patient will be transported by setter automatic spinning lathe at time of discharge.
[2021-12-12] MEDS: Ziprasidone 20 MG VIAL IM (16:14)
[2021-12-12] MEDS: Water,Injection,Sterile 10 ML VIAL (16:15)
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
--- NOTE | 2021-12-12 16:56 | CMPROGNOTE_ITS ---
- If Service Date Differs Date of service: 12/12/21 Time of Service: 16:56 Care Management Progress Note S/O: Td was brought to the ED this afternoon via his emotional support teacher for SI with plan and intent. EE status was obtained and pt will remain at [facility] pending second certification which will occur after 5 pm. He will be screened twice daily by [facility] clinicians until placement is found if his second certification is upheld. In addition, CM left message for Nely BLEVINS for Dept. of Mental Health asking for help placing patient [facility] a [facility]. Judd is very acute. He may also benefit from a medical/psych admission to rule out biological etiology. Judd has a significant and recent history of becoming aggressive at times without warning and other times with. A: Judd is a 46 year old male admitted to [facility] on 12/08/21 with delusional thoughts. P: Judd is involuntary, EE status with 2nd certification pending this evening. OPG is Guardian is Anitha Patrickcone, [phone]. Judd is seeking inpatient psychiatric stabilization. [facility] sent referral's tp Valeria Lazoeat, Tommy, [facility], and [facility]. FELICITY contacted Nely from [place] Dept of for help with placement at a [facility]. Judd will likely transport via [facility]. He will follow up with his community providers and discharge plan of care. FELICITY will continue to follow. [facility] Dept of . - Status Status: Involuntary - Guardianship if Applicable Guardianship: [facility] (Anitha Gascone) - Reason for Wait Reason for Wait: Inpatient Admission
--- NOTE | 2021-12-12 16:56 | PDOC.ERCMPRO ---
- If Service Date Differs Date of service: 12/12/21 Time of Service: 16:56 Care Management Progress Note S/O: Td was brought to the ED this afternoon via his service support representative for SI with plan and intent. EE status was obtained and pt will remain at [facility] pending second certification which will occur after 5 pm. He will be screened twice daily by [facility] clinicians until placement is found if his second certification is upheld. In addition, CM left message for Nely BLEVINS for Dept. of Mental Health asking for help placing patient in a [facility]. Judd is very acute. He may also benefit from a medical/psych admission to rule out biological etiology. Judd has a significant and recent history of becoming aggressive at times without warning and other times with. A: Judd is a 46 year old male admitted to [facility] on 12/08/21 with delusional thoughts. P: Judd is involuntary, EE status with 2nd certification pending this evening. [facility] is Guardian is Anitha Patrickcone, [phone]. Judd is seeking inpatient psychiatric stabilization. [facility] sent referral's tp Valeria [facility], Tommy, [facility], and [facility]. FELICITY contacted Nely from [place] Dept of for help with placement at a [facility]. Judd will likely transport via [facility]. He will follow up with his community providers and discharge plan of care. FELICITY will continue to follow. [facility] Dept of . - Status Status: Involuntary - Guardianship if Applicable Guardianship: OPG (Anitha Gascone) - Reason for Wait Reason for Wait: Inpatient Admission
--- NOTE | 2021-12-12 17:00 | RT.EKG_ITS ---
APPROVED REPORT Exam: Resting ECG Reason for Exam: prolonged QT Patient Location: E HR:69 bpm ECG Measurements Heart Rate 69 AXIS IN 165 P 36 QRSd 88 QRS 57 QT 393 T 61 QTc 422 Conclusion Sinus rhythm...normal P axis, V-rate 60- 99 Low voltage, precordial leads...precordial leads <1.0mV ST elev, probable normal early repol pattern...ST elevation, age<55
[2021-12-12] MEDS: LORazepam 0.5 MG TAB PO (17:20)
[2021-12-12] MEDS: diphenhydrAMINE 25 MG CAP PO (17:20)
--- NOTE | 2021-12-12 19:28 | NUR.NOTE ---
Addendum entered by Angela Juarez 12/12/21 19:32: The wound area is from chronic picking/digging at his head Original Note: Nursing Note: Harriett has a superficial abrasion on his scalp. Patient stated that he was nervous and picked the area and made it bleed. Orthopedic Podiatrist cleansed the area with gauze & normal saline, applied topical ointment and covered with a mepilex dressing.
[2021-12-12] MEDS: Prazosin 1 MG CAP 2 MG PO (21:44)
[2021-12-12] MEDS: Haloperidol 1 MG TAB 3 MG PO (21:44)
[2021-12-12 21:45] VITALS: BP 125/77; PULSE 78; RESP 18; TEMP 36.3; O2SAT 95
[2021-12-12] MEDS: Acetaminophen 500 MG TAB PO (21:45)
[2021-12-12] MEDS: traZODone 100 MG TAB PO (21:45)
[2021-12-12] MEDS: Citalopram 20 MG TAB 40 MG PO (21:45)
[2021-12-12] MEDS: busPIRone 5 MG TAB PO (21:46)
[2021-12-12] MEDS: Melatonin 3 MG TAB 6 MG PO (21:46)
[2021-12-12] MEDS: risperiDONE 1 MG TAB 3 MG PO (21:46)
--- NOTE | 2021-12-13 00:39 | W.EDPROG ---
Date of service: 12/13/21 Time of Service: 00:30 Medical Decision Making pt sleeping on my evaluation and intermittently awakens but falls back asleep, has been ambulating with steady gait. Second cert completed and will remain in the ED until placement found Sign Out Sign Out Data: Sign Out Comment: EE. Delusional thought process. Visual and auditory hallucinations. Awaiting the psychiatric evaluation and final disposition. Patient has been cooperative thus far Last updated by Adair Dueñas PA at 12/12/21 15:56 Sign Out Comment: Patient remains a EE and delusional and thought process with audio and visual hallucinations. Both initial and second CERT have been performed. Patient pending psychiatric admission. Last updated by Abhishek Snow NP at 12/12/21 23:25 Sign Out Comment: involuntary for delusional though process as well as visual/auditory hallucinations, eloped from inpatient prior to this after being there voluntary. No issues overnight awaiting placement Last updated by Brad Lovell MD at 12/13/21 00:39 Discharge Plan Disposition Patient Disposition: STILL A PATIENT Condition: Serious Discharge Details Clinical Impression: Auditory hallucinations, Delusions, Visual hallucinations Primary Care Provider: Unknown,Unknown ED Provider: Brad Lovell Home Meds and New Rx's Prescriptions: No Action buspirone 5 mg Tablet 5 mg PO BID 0RF citalopram 40 mg Tablet 40 mg PO HS 0RF melatonin 3 mg Tablet 6 mg PO HS 0RF calcium carbonate-vitamin D3 600 mg(1,500mg) -200 unit Tablet 1 tab PO BID 0RF risperidone 3 mg Tablet 3 mg PO BID 0RF lorazepam 0.5 mg Tablet 0.5 mg PO .07 AND NOON 0RF ferrous sulfate 325 mg (65 mg iron) Tablet 325 mg PO DAILY 0RF omeprazole 20 mg Capsule,Delayed Release(Dr/Ec) 20 mg PO QAM 0RF haloperidol 2 mg Tablet 3 mg PO TID 0RF tacrolimus 1 mg Capsule 0 mg PO BID 0RF Rx Instructions: TAKES 1 CAP QAM AND 2 CAPS QPM prazosin 2 mg Capsule 2 mg PO HS 0RF cholecalciferol (vitamin D3) [Vitamin D3] 25 mcg (1,000 unit) Tablet 25 mcg PO QAM 0RF acetaminophen 500 mg Tablet 500 mg PO TID PRN0RF diphenhydramine HCl 25 mg Capsule 25 mg PO TID PRN0RF lactase [Lactaid] 3,000 unit Tablet 6,000 unit PO TID PRN0RF lidocaine 5 % Adhesive Patch,Medicated 1 patch transdermal PRN PRN0RF trazodone 50 mg Tablet 100 mg PO HS 0RF mycophenolate mofetil 250 mg Capsule 250 mg PO BID 0RF
[2021-12-13] MEDS: Mycophenolate Mofetil 250 MG CAP PO (09:28)
[2021-12-13] MEDS: Ferrous Sulfate 325 MG TAB PO (09:28)
[2021-12-13] MEDS: busPIRone 5 MG TAB PO (09:28)
[2021-12-13] MEDS: Omeprazole 20 MG CAPCR PO (09:28)
[2021-12-13] MEDS: Haloperidol 1 MG TAB 3 MG PO ×2 (09:28→14:39)
[2021-12-13] MEDS: LORazepam 0.5 MG TAB PO ×2 (09:28→14:39)
[2021-12-13] MEDS: risperiDONE 1 MG TAB 3 MG PO (09:28)
[2021-12-13] MEDS: Tacrolimus 0.5 MG CAP 1 MG PO (09:29)
--- NOTE | 2021-12-13 09:55 | NUR.NOTE ---
Nursing Note: [facility], Darron; called stating that they were declining the patient for admission. Madina Ribeiro
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
--- NOTE | 2021-12-13 16:15 | W.EDPROG ---
Date of service: 12/11/21 Time of Service: 07:30 Medical Decision Making Patient was signed out to me by Dr. Lovell at time of shift change with involuntary inpatient placement pending for delusional thinking, hallucinations. During my shift, [facility] requested second certification as apparently it was felt that initial second certification was incomplete. [facility], they deemed that a second certification was not warranted, and there was no indication to hold patient in the emergency department against his will. Patient not deemed to be a significant risk to himself or others. Patient lives at home with 24/7 performance improvement specialist. Patient was seen by mental health after second certification denied, patient does not wish to stay on voluntary status for inpatient placement, request to be discharged home. Discussed with Patient and caregiver return to emergency department precautions, home care, and importance of outpatient follow-up. Pt verbalizes understanding of the plan and is amenable. Patient discharged to home with clear plan for outpatient follow-up. All questions were answered. Disposition decision was made weighing the risks and benefits of hospitalization versus outpatient treatment, the risk for further decompensation, and the patient's wishes. Medical Records Medical records reviewed: Yes I reviewed the patient's medical records. Sign Out Sign Out Data: Sign Out Comment: EE. Delusional thought process. Visual and auditory hallucinations. Awaiting the psychiatric evaluation and final disposition. Patient has been cooperative thus far Last updated by Adair Dueñas PA at 12/12/21 15:56 Sign Out Comment: Patient remains a EE and delusional and thought process with audio and visual hallucinations. Both initial and second CERT have been performed. Patient pending psychiatric admission. Last updated by Abhishek Snow NP at 12/12/21 23:25 Sign Out Comment: involuntary for delusional though process as well as visual/auditory hallucinations, eloped from inpatient prior to this after being there voluntary. No issues overnight awaiting placement Last updated by Brad Lovell MD at 12/13/21 00:39 Discharge Plan Disposition Patient Disposition: HOME Condition: Stable Discharge Details Clinical Impression: Auditory hallucinations, Delusions, Visual hallucinations Primary Care Provider: Unknown,Unknown ED Provider: Rosa Ovalle Home Meds and New Rx's Prescriptions: Continued buspirone 5 mg Tablet 5 mg PO BID 0RF citalopram 40 mg Tablet 40 mg PO HS 0RF melatonin 3 mg Tablet 6 mg PO HS 0RF calcium carbonate-vitamin D3 600 mg(1,500mg) -200 unit Tablet 1 tab PO BID 0RF risperidone 3 mg Tablet 3 mg PO BID 0RF lorazepam 0.5 mg Tablet 0.5 mg PO .07 AND NOON 0RF ferrous sulfate 325 mg (65 mg iron) Tablet 325 mg PO DAILY 0RF omeprazole 20 mg Capsule,Delayed Release(Dr/Ec) 20 mg PO QAM 0RF haloperidol 2 mg Tablet 3 mg PO TID 0RF tacrolimus 1 mg Capsule 0 mg PO BID 0RF Rx Instructions: TAKES 1 CAP QAM AND 2 CAPS QPM prazosin 2 mg Capsule 2 mg PO HS 0RF cholecalciferol (vitamin D3) [Vitamin D3] 25 mcg (1,000 unit) Tablet 25 mcg PO QAM 0RF acetaminophen 500 mg Tablet 500 mg PO TID PRN0RF diphenhydramine HCl 25 mg Capsule 25 mg PO TID PRN0RF lactase [Lactaid] 3,000 unit Tablet 6,000 unit PO TID PRN0RF lidocaine 5 % Adhesive Patch,Medicated 1 patch transdermal PRN PRN0RF trazodone 50 mg Tablet 100 mg PO HS 0RF mycophenolate mofetil 250 mg Capsule 250 mg PO BID 0RF Discharge Instructions Additional Instructions: Please return immediately to the emergency department if you develop any new or worsening symptoms, if your condition does not improve as expected, or if you become otherwise concerned. It is extremely important that you call soon as possible to make an appointment to be seen in follow-up for this visit by your primary care doctor. Discharge Data Discharge Date/Time-TO BE ENTERED AT DEPARTURE: 12/13/21 16:37
--- NOTE | 2021-12-13 16:25 | PDOC.MHCN ---
Date of service: 12/13/21 Time of Service: 16:26 Mental Health Crisis Note Presenting Issue How did you arrive at the ED and why did you come: Pt arrived on 12.12.2021 for assessment and referrals for psychiatric treatment. Pt was placed on an EE because of his recent AMA from [facility] the night before and history of SI. Precipitating Factors Pt denied SI and HI to JACK Schroeder, Dr. Soni and this clinician today. Disposition BEHAVIOR: Pt was resting when this clinician arrived. He startled awake. Pt agreed to a discussion about symptoms and treatment. Pt stated he wanted to go home and not stay voluntarily. EYE CONTACT: Pt made good eye contact. MOOD: Pt's mood appeared normal for him per this clinician's limited knowledge of him. AFFECT: Affect is smiling and happy. APPETITE: Pt is eating well. SLEEP(trouble falling/staying asleep: Pt got sleep last night. Plan Pt's second, second cert did not pass today and he is not currently meeting criteria for hospitalization. Pt will be discharged to his personal support worker to return home. He is looking forward to watching the [place] when he gets there. Signature Clinician's Name/Title: Gabriela Mehta MS, [facility] Emergency Services Clinician, [facility]
== END 2021-12-13 16:37 | disposition home or self-care (01) ==
PROVIDERS: Physician Assistant; Emergency Provider Student in an Organized Health Care Education/Training Program
DX: R44.0 Auditory hallucinations (principal); R44.1 Visual hallucinations; R46.89 Other symptoms and signs involving appearance and behavior; Z94.0 Kidney transplant status; Z20.822 Contact with and (suspected) exposure to COVID-19
CPT/HCPCS: 87635; 93005; 96372; 99285; 93010; J3486; J3490; J7517

== ENCOUNTER 2022-06-21 03:57 | Outpatient (CLI) | payer MEDICARE, MEDICAID, SELFPAY ==
[2022-06-21 09:11] LABS: Abs Immature Grans 0.01 10^3/uL (0.0-0.06); Absolute Basophil Count 0.06 10^3/uL (0.0-0.2); Absolute Eosinophil Count 0.19 10^3/uL (0.0-0.7); Absolute Lymphocyte Count 1.69 10^3/uL (1.2-3.4); Absolute Monocyte Count 0.68 10^3/uL (0.1-0.8); Absolute Neutrophil Count 4.15 10^3/uL (1.2-6.7); Basophils % 0.9; Eosinophils % 2.8; HGB 13.3 g/dL (13.5-17.5); Immature Grans % 0.1; Lymphocytes % 24.9; MCH 27.8 pg (27.0-33.0); MCHC 30.9 % (32.0-36.0); MCV 90 fL (80-95); MPV 9.2 fL (8.0-11.0); Neutrophils % 61.3; Platelet Count 247 10^3/uL (130-400); RBC 4.78 10^6/uL (4.36-5.78); RDW 13.7 % (11.8-14.1); RDW-SD 45.3 fL; WBC 6.78 10^3/uL (4.4-10.8)
[2022-06-21 09:28] LABS: Ammonia 14 umol/L (11-32)
[2022-06-21 09:54] LABS: ALT 41 U/L (16-63); AST 17 U/L (15-37); Albumin 3.6 g/dL (3.4-5.0); Alkaline Phosphatase 112 U/L (46-116); Anion Gap 6.6 mmol/L (3-11); BUN 17 mg/dL (7-18); Bilirubin, Total 0.3 mg/dL (0.2-1.0); CO2 29.4 mmol/L (21.0-32.0); CREATININE 1.1 mg/dL (0.70-1.30); Calcium 9.1 mg/dL (8.5-10.1); Chloride 104 mmol/L (98-107); Estimated GFR 84.37 (mL/min/1.73m2); Glucose 99 mg/dL (74-106); Potassium 4.5 mmol/L (3.5-5.1); Sodium 140 mmol/L (136-145); TSH 1.89 uIU/mL (0.36-3.74); Total Protein 7.5 g/dL (6.4-8.2)
[2022-06-21 10:32] LABS: Vitamin B12 347 pg/mL (193-986)
== END 2022-06-21 03:58 | disposition home or self-care (01) ==
PROVIDERS: Visit Provider Psychiatry & Neurology Child & Adolescent Psychiatry
DX: F79 Unspecified intellectual disabilities (principal); Z94.0 Kidney transplant status
CPT/HCPCS: 36415; 80053; 82140; 82607; 84443; 85025

== ENCOUNTER 2022-12-13 01:44 | Outpatient (CLI) | payer MEDICARE, MEDICAID, SELFPAY ==
[2022-12-13 12:37] LABS: Kit/Specimen SENT
[2022-12-13 12:49] LABS: HCT 44.1 % (40.0-50.0); HGB 14.1 g/dL (13.5-17.5); MCH 28.3 pg (27.0-33.0); MCV 88 fL (80-95); Platelet Count 278 10^3/uL (130-400); RBC 4.99 10^6/uL (4.36-5.78); RDW 13.6 % (11.8-14.1); RDW-SD 44.3 fL
[2022-12-13 13:11] LABS: Bilirubin Negative (Negative); Blood Negative (Negative); Clarity Clear (Clear); Glucose Negative (Negative); Ketones Negative (Negative); Leukocyte Esterase Negative (Negative); Nitrite Negative (Negative); Urobilinogen 0.2 mg/dL (Up to 0.2)
[2022-12-13 13:32] LABS: Anion Gap 6.5 mmol/L (3-11); BUN 15 mg/dL (7-18); CO2 29.5 mmol/L (21.0-32.0); CREATININE 1.2 mg/dL (0.70-1.30); Calcium 9.5 mg/dL (8.5-10.1); Calculated LDL 68 mg/dL (<100); Chloride 102 mmol/L (98-107); Cholesterol 134 mg/dL (<200); Ferritin 183 ng/mL (26-388); Glucose 95 mg/dL (74-106); HDL Cholesterol 40 mg/dL (40-60); Magnesium 1.7 mg/dL (1.8-2.4); Potassium 4.4 mmol/L (3.5-5.1); Sodium 138 mmol/L (136-145); Triglyceride 132 mg/dL (<150)
[2022-12-13 13:35] LABS: COMMENT (LAB VIEW ONLY) 103.66 mg/dL; Microalb ug/mg Crea 23.4 ug/mg Cr
[2022-12-13 13:37] LABS: Iron 53 ug/dL (65-175); Total Iron Binding Capacity 249 ug/dL (250-450); Transferrin Sat 21 % (20-55)
[2022-12-13 13:46] LABS: PHOSPHORUS 2.6 mg/dL (2.6-4.7)
[2022-12-13 14:00] LABS: Vitamin D 25 Total 38.6 ng/mL (30-100)
[2022-12-13 22:59] LABS: Parathyroid Hormone,Intact 66 pg/mL (19-88)
[2022-12-14 13:54] LABS: Tacrolimus 6.1 ng/mL (See Note)
[2022-12-14 21:48] LABS: CMV DNA Detect/Quant, P Undetected IU/mL (Undetected)
[2022-12-15 17:03] LABS: EBV DNA Detect/Quant, P Undetected IU/mL (Undetected)
[2022-12-15 17:17] LABS: BKV DNA Detect/Quant, P Undetected IU/mL (Undetected)
== END 2022-12-13 01:45 | disposition home or self-care (01) ==
LOC: LBO 01:44
PROVIDERS: PCP Family Medicine; Visit Provider Family Medicine
DX: Z94.0 Kidney transplant status (principal); Z79.899 Other long term (current) drug therapy; Z51.81 Encounter for therapeutic drug level monitoring; E55.9 Vitamin D deficiency, unspecified; E61.1 Iron deficiency
CPT/HCPCS: 36415; 80048; 80061; 82306; 85027; 87799; 80197; 81003; 82043; 82570; 82728; 83036; 83540; 83550; 83735; 83970; 84100; 87497

== ENCOUNTER 2023-06-25 03:01 | Outpatient (CLI) | payer MEDICARE, MEDICAID, SELFPAY ==
[2023-06-25 07:49] LABS: Abs Immature Grans 0.01 10^3/uL (0.0-0.06); Absolute Basophil Count 0.05 10^3/uL (0.0-0.2); Absolute Lymphocyte Count 1.86 10^3/uL (1.2-3.4); Absolute Monocyte Count 0.69 10^3/uL (0.1-0.8); Absolute Neutrophil Count 4.53 10^3/uL (1.2-6.7); Basophils % 0.7; Eosinophils % 1.4; HGB 13.7 g/dL (13.5-17.5); Immature Grans % 0.1; Lymphocytes % 25.7; MCHC 31.9 % (32.0-36.0); MCV 88 fL (80-95); MPV 9.1 fL (8.0-11.0); Monocytes % 9.5; Neutrophils % 62.6; Platelet Count 254 10^3/uL (130-400); RBC 4.89 10^6/uL (4.36-5.78); RDW 13.7 % (11.8-14.1); RDW-SD 44.4 fL; WBC 7.24 10^3/uL (4.4-10.8)
[2023-06-25 07:51] LABS: Bilirubin Negative (Negative); Blood Negative (Negative); Clarity Clear (Clear); Glucose Negative (Negative); Ketones Negative (Negative); Leukocyte Esterase Negative (Negative); Nitrite Negative (Negative); Urobilinogen 0.2 mg/dL (Up to 0.2); pH 5.5 (5-8)
[2023-06-25 08:28] LABS: Magnesium 1.8 mg/dL (1.8-2.4); PHOSPHORUS 2.8 mg/dL (2.6-4.7)
[2023-06-25 08:29] LABS: COMMENT (LAB VIEW ONLY) 139.26 mg/dL; Microalb ug/mg Crea 19.5 ug/mg Cr
[2023-06-26 13:18] LABS: Tacrolimus 4.4 ng/mL (See Note)
== END 2023-06-25 03:02 | disposition home or self-care (01) ==
LOC: LBO 03:01
PROVIDERS: PCP Family Medicine
DX: Z79.899 Other long term (current) drug therapy (principal); Z51.81 Encounter for therapeutic drug level monitoring; Z94.0 Kidney transplant status
CPT/HCPCS: 36415; 80197; 81003; 82043; 82570; 83735; 84100; 85025

== ENCOUNTER 2023-07-23 02:58 | Outpatient (CLI) | payer MEDICARE, MEDICAID, SELFPAY ==
[2023-07-23 07:50] LABS: Kit/Specimen SENT
[2023-07-23 08:04] LABS: HCT 43.1 % (40.0-50.0); HGB 13.4 g/dL (13.5-17.5); MCH 27.6 pg (27.0-33.0); MCHC 31.1 % (32.0-36.0); MCV 89 fL (80-95); MPV 9.3 fL (8.0-11.0); Platelet Count 242 10^3/uL (130-400); RBC 4.85 10^6/uL (4.36-5.78); RDW 13.6 % (11.8-14.1); RDW-SD 44.4 fL; WBC 5.98 10^3/uL (4.4-10.8)
[2023-07-23 08:13] LABS: Bilirubin Negative (Negative); Blood Negative (Negative); Clarity Clear (Clear); Glucose Negative (Negative); Ketones Negative (Negative); Leukocyte Esterase Negative (Negative); Nitrite Negative (Negative); Specific Gravity 1.025 (1.005-1.025); Urobilinogen 0.2 mg/dL (Up to 0.2)
[2023-07-23 08:20] LABS: Bacteria Negative HPF (Negative); C & S Indicated? No; Casts 0-2 Hyaline LPF (Negative); Crystals Negative HPF (Negative); Epithelial Cells Rare HPF (Negative); Mucus Trace (Negative); RBC Negative HPF (0-2); WBC Negative HPF (0-5)
[2023-07-23 08:41] LABS: Anion Gap 3.3 mmol/L (3-11); BUN 17 mg/dL (7-18); CO2 30.7 mmol/L (21.0-32.0); CREATININE 1.1 mg/dL (0.70-1.30); Calcium 9.4 mg/dL (8.5-10.1); Chloride 104 mmol/L (98-107); Estimated GFR 83.84 (mL/min/1.73m2); Glucose 108 mg/dL (74-106); Magnesium 1.8 mg/dL (1.8-2.4); PHOSPHORUS 2.7 mg/dL (2.6-4.7); Sodium 138 mmol/L (136-145)
[2023-07-23 10:31] LABS: COMMENT (LAB VIEW ONLY) 201.87 mg/dL; Microalb ug/mg Crea 46.7 ug/mg Cr
== END 2023-07-23 02:59 | disposition home or self-care (01) ==
PROVIDERS: PCP Family Medicine; Visit Provider Internal Medicine Nephrology
DX: Z94.0 Kidney transplant status; Z51.81 Encounter for therapeutic drug level monitoring
CPT/HCPCS: 36415; 80048; 82043; 82570; 85027; 80197; 81003; 81015; 83735; 84100

== ENCOUNTER 2023-10-17 04:09 | Outpatient (CLI) | payer MEDICARE, MEDICAID, SELFPAY ==
[2023-10-17 08:01] LABS: Bilirubin Negative (Negative); Blood Negative (Negative); Clarity Clear (Clear); Glucose Negative (Negative); Ketones Negative (Negative); Leukocyte Esterase Negative (Negative); Nitrite Negative (Negative); Urobilinogen 0.2 mg/dL (Up to 0.2)
[2023-10-17 08:12] LABS: HCT 44.2 % (40.0-50.0); HGB 13.8 g/dL (13.5-17.5); MCH 27.8 pg (27.0-33.0); MCHC 31.2 % (32.0-36.0); MCV 89 fL (80-95); MPV 9.2 fL (8.0-11.0); Platelet Count 243 10^3/uL (130-400); RBC 4.97 10^6/uL (4.36-5.78); RDW 14.5 % (11.8-14.1); RDW-SD 45.6 fL; WBC 7.05 10^3/uL (4.4-10.8)
[2023-10-17 08:20] LABS: Anion Gap 6.6 mmol/L (3-11); BUN 19 mg/dL (7-18); CO2 30.4 mmol/L (21.0-32.0); CREATININE 1.1 mg/dL (0.70-1.30); Calcium 9.6 mg/dL (8.5-10.1); Chloride 104 mmol/L (98-107); Estimated GFR 83.84 (mL/min/1.73m2); Glucose 106 mg/dL (74-106); Magnesium 1.7 mg/dL (1.8-2.4); PHOSPHORUS 2.7 mg/dL (2.6-4.7); Potassium 4.2 mmol/L (3.5-5.1); Sodium 141 mmol/L (136-145)
[2023-10-17 08:20] LABS: COMMENT (LAB VIEW ONLY) 146.87 mg/dL; Microalb ug/mg Crea 40.2 ug/mg Cr
[2023-10-18 11:45] LABS: Tacrolimus 5.1 ng/mL (See Note)
== END 2023-10-17 04:10 | disposition home or self-care (01) ==
LOC: LBO 04:09
PROVIDERS: PCP Family Medicine; Visit Provider Internal Medicine Nephrology
DX: Z79.899 Other long term (current) drug therapy (principal)
CPT/HCPCS: 36415; 80048; 85027; 80197; 81003; 82043; 82570; 83735; 84100

== ENCOUNTER 2024-01-16 05:12 | Outpatient (CLI) | payer MEDICARE, MEDICAID, SELFPAY ==
[2024-01-16 08:24] LABS: Kit/Specimen SENT
[2024-01-16 08:29] LABS: HGB 13.9 g/dL (13.5-17.5); MCH 28.3 pg (27.0-33.0); MCHC 30.9 % (32.0-36.0); MCV 92 fL (80-95); MPV 9.5 fL (8.0-11.0); Platelet Count 247 10^3/uL (130-400); RBC 4.91 10^6/uL (4.36-5.78); RDW 13.5 % (11.8-14.1); WBC 6.89 10^3/uL (4.4-10.8)
[2024-01-16 08:45] LABS: Bilirubin Negative (Negative); Blood Negative (Negative); Clarity Clear (Clear); Glucose Negative (Negative); Ketones Negative (Negative); Leukocyte Esterase Negative (Negative); Nitrite Negative (Negative); Specific Gravity 1.025 (1.005-1.025); Urobilinogen 0.2 mg/dL (Up to 0.2)
[2024-01-16 08:52] LABS: Hemoglobin A1C 6.1 % (<5.7)
[2024-01-16 08:56] LABS: Iron 43 ug/dL (65-175); Total Iron Binding Capacity 266 ug/dL (250-450); Transferrin Sat 16 % (20-55)
[2024-01-16 09:05] LABS: Bacteria Rare HPF (Negative); C & S Indicated? No; Casts Negative LPF (Negative); Crystals Negative HPF (Negative); Epithelial Cells Rare HPF (Negative); Mucus Trace (Negative); RBC 0-2 HPF (0-2); WBC 0-2 HPF (0-5)
[2024-01-16 09:23] LABS: Anion Gap 9.3 mmol/L (3-11); BUN 17 mg/dL (7-18); CO2 30.7 mmol/L (21.0-32.0); CREATININE 1.1 mg/dL (0.70-1.30); Calcium 9.2 mg/dL (8.5-10.1); Calculated LDL 76 mg/dL (<100); Chloride 103 mmol/L (98-107); Cholesterol 140 mg/dL (<200); Estimated GFR 83.32 (mL/min/1.73m2); Ferritin 169 ng/mL (26-388); Glucose 106 mg/dL (74-106); HDL Cholesterol 44 mg/dL (40-60); Magnesium 1.4 mg/dL (1.8-2.4); Potassium 4.3 mmol/L (3.5-5.1); Sodium 143 mmol/L (136-145); Triglyceride 100 mg/dL (<150); Vitamin D 25 Total 44.6 ng/mL (30-100)
[2024-01-16 09:38] LABS: COMMENT (LAB VIEW ONLY) 128.96 mg/dL
[2024-01-16 09:41] LABS: Microalb ug/mg Crea 125.8 ug/mg Cr
[2024-01-16 21:05] LABS: Parathyroid Hormone,Intact 95 pg/mL (19-88)
[2024-01-17 11:40] LABS: Tacrolimus 5.9 ng/mL (See Note)
[2024-01-18 16:18] LABS: CMV DNA Detect/Quant, P Undetected IU/mL (Undetected)
[2024-01-19 22:08] LABS: EBV DNA Detect/Quant, P Undetected IU/mL (Undetected)
[2024-01-20 16:06] LABS: BKV DNA Detect/Quant, P <22 IU/mL (Undetected)
== END 2024-01-16 05:13 | disposition home or self-care (01) ==
PROVIDERS: PCP Family Medicine; Visit Provider Internal Medicine Nephrology
DX: Z79.899 Other long term (current) drug therapy (principal)
CPT/HCPCS: 36415; 80048; 80061; 82306; 85027; 87799; 80197; 81003; 81015; 82043; 82570; 82728; 83036; 83540; 83550; 83735; 83970; 84100; 87497

== ENCOUNTER 2024-06-22 02:35 | Outpatient (CLI) | payer MEDICARE, MEDICAID, SELFPAY ==
[2024-06-22 09:52] LABS: HCT 43.2 % (40.0-50.0); HGB 13.5 g/dL (13.5-17.5); MCH 28.3 pg (27.0-33.0); MCHC 31.3 % (32.0-36.0); MCV 91 fL (80-95); MPV 9.6 fL (8.0-11.0); Platelet Count 238 10^3/uL (130-400); RBC 4.77 10^6/uL (4.36-5.78); RDW 13.2 % (11.8-14.1); RDW-SD 44.3 fL; WBC 7.57 10^3/uL (4.4-10.8)
[2024-06-22 10:00] LABS: Bilirubin Negative (Negative); Blood Negative (Negative); Clarity Clear (Clear); Glucose Negative (Negative); Ketones Negative (Negative); Leukocyte Esterase Negative (Negative); Nitrite Negative (Negative); Urobilinogen 0.2 mg/dL (Up to 0.2); pH 6.5 (5-8)
[2024-06-22 10:16] LABS: Anion Gap 6.3 mmol/L (3-11); BUN 19 mg/dL (7-18); CO2 29.7 mmol/L (21.0-32.0); CREATININE 1.1 mg/dL (0.70-1.30); Calcium 9.1 mg/dL (8.5-10.1); Chloride 105 mmol/L (98-107); Estimated GFR 83.32 (mL/min/1.73m2); Glucose 105 mg/dL (74-106); Magnesium 1.5 mg/dL (1.8-2.4); PHOSPHORUS 2.8 mg/dL (2.6-4.7); Potassium 4.1 mmol/L (3.5-5.1); Sodium 141 mmol/L (136-145)
[2024-06-22 10:47] LABS: COMMENT (LAB VIEW ONLY) 68.62 mg/dL; Microalb ug/mg Crea 75.1 ug/mg Cr
[2024-06-22 10:51] LABS: Ferritin 206 ng/mL (26-388)
[2024-06-23 11:19] LABS: Tacrolimus 6.3 ng/mL (See Note)
== END 2024-06-22 02:36 | disposition home or self-care (01) ==
PROVIDERS: PCP Family Medicine; Visit Provider Internal Medicine Nephrology
DX: Z94.0 Kidney transplant status (principal); Z51.81 Encounter for therapeutic drug level monitoring; Z79.899 Other long term (current) drug therapy
CPT/HCPCS: 36415; 80048; 80061; 82306; 85027; 87799; 80197; 81003; 82043; 82570; 82728; 83036; 83540; 83550; 83735; 83970; 84100; 87497

== ENCOUNTER 2024-08-11 02:19 | Outpatient (CLI) | payer MEDICARE, MEDICAID, SELFPAY ==
[2024-08-11 08:05] LABS: Kit/Specimen SENT
[2024-08-11 08:07] LABS: HCT 45.1 % (40.0-50.0); HGB 13.9 g/dL (13.5-17.5); MCH 27.9 pg (27.0-33.0); MCHC 30.8 % (32.0-36.0); MCV 90 fL (80-95); MPV 9.4 fL (8.0-11.0); Platelet Count 239 10^3/uL (130-400); RBC 4.99 10^6/uL (4.36-5.78); RDW 13.2 % (11.8-14.1); RDW-SD 43.1 fL; WBC 6.06 10^3/uL (4.4-10.8)
[2024-08-11 08:09] LABS: Bilirubin Negative (Negative); Blood Negative (Negative); Clarity Clear (Clear); Glucose Negative (Negative); Ketones Negative (Negative); Leukocyte Esterase Negative (Negative); Nitrite Negative (Negative); Urobilinogen 0.2 mg/dL (Up to 0.2)
[2024-08-11 08:42] LABS: BUN 15 mg/dL (7-18); CREATININE 1.2 mg/dL (0.70-1.30); Calcium 9.5 mg/dL (8.5-10.1); Chloride 104 mmol/L (98-107); Estimated GFR 75.06 (mL/min/1.73m2); Glucose 113 mg/dL (74-106); Magnesium 1.7 mg/dL (1.8-2.4); PHOSPHORUS 2.4 mg/dL (2.6-4.7); Sodium 141 mmol/L (136-145)
[2024-08-11 08:45] LABS: COMMENT (LAB VIEW ONLY) 161.44 mg/dL; Microalb ug/mg Crea 25.4 ug/mg Cr
[2024-08-12 13:46] LABS: Tacrolimus 9.1 ng/mL (See Note)
== END 2024-08-11 02:20 | disposition home or self-care (01) ==
PROVIDERS: PCP Family Medicine; Visit Provider Internal Medicine Nephrology
DX: Z79.899 Other long term (current) drug therapy (principal); Z94.0 Kidney transplant status; Z51.81 Encounter for therapeutic drug level monitoring
CPT/HCPCS: 36415; 80048; 85027; 80197; 81003; 82043; 82570; 83735; 84100

== ENCOUNTER 2024-12-22 03:50 | Outpatient (CLI) | payer MEDICARE, MEDICAID, SELFPAY ==
[2024-12-22 09:22] LABS: Kit/Specimen SENT
[2024-12-22 09:33] LABS: HCT 43.2 % (40.0-50.0); HGB 13.4 g/dL (13.5-17.5); MCH 28.1 pg (27.0-33.0); MCV 91 fL (80-95); MPV 9.8 fL (8.0-11.0); Platelet Count 230 10^3/uL (130-400); RBC 4.77 10^6/uL (4.36-5.78); RDW 13.3 % (11.8-14.1); RDW-SD 44.7 fL; WBC 6.66 10^3/uL (4.4-10.8)
[2024-12-22 09:34] LABS: Bilirubin Negative (Negative); Blood Negative (Negative); Clarity Clear (Clear); Glucose Negative (Negative); Ketones Negative (Negative); Leukocyte Esterase Negative (Negative); Nitrite Negative (Negative); Urobilinogen 0.2 mg/dL (Up to 0.2)
[2024-12-22 09:55] LABS: Hemoglobin A1C 5.8 % (<5.7)
[2024-12-22 10:00] LABS: COMMENT (LAB VIEW ONLY) 99.49 mg/dL; Microalb ug/mg Crea 33.1 ug/mg Cr
[2024-12-22 10:19] LABS: Iron 33 ug/dL (65-175); Total Iron Binding Capacity 270 ug/dL (250-450); Transferrin Sat 12 % (20-55)
[2024-12-22 10:53] LABS: BUN 13 mg/dL (7-18); CREATININE 0.9 mg/dL (0.70-1.30); Calcium 9.3 mg/dL (8.5-10.1); Calculated LDL 88 mg/dL (<100); Chloride 106 mmol/L (98-107); Cholesterol 151 mg/dL (<200); Estimated GFR 106.01 (mL/min/1.73m2); Ferritin 240 ng/mL (26-388); Glucose 90 mg/dL (74-106); HDL Cholesterol 44 mg/dL (>or=40); Potassium 4.2 mmol/L (3.5-5.1); Sodium 140 mmol/L (136-145); Triglyceride 98 mg/dL (<150); Vitamin D 25 Total 50 ng/mL (30-100)
[2024-12-22 11:08] LABS: PHOSPHORUS 2.5 mg/dL (2.6-4.7)
[2024-12-22 18:01] LABS: Parathyroid Hormone,Intact 96 pg/mL (19-88)
[2024-12-23 13:45] LABS: Tacrolimus 4.5 ng/mL (See Note)
[2024-12-24 13:46] LABS: CMV DNA Detect/Quant, P Undetected IU/mL (Undetected)
[2024-12-24 14:01] LABS: EBV DNA Detect/Quant, P Undetected IU/mL (Undetected)
[2024-12-24 15:22] LABS: BKV DNA Detect/Quant, P Undetected IU/mL (Undetected)
== END 2024-12-22 03:51 | disposition home or self-care (01) ==
LOC: LBO 03:51
PROVIDERS: PCP Family Medicine; Visit Provider Internal Medicine Nephrology
DX: E61.1 Iron deficiency; Z79.899 Other long term (current) drug therapy; Z94.0 Kidney transplant status; Z51.81 Encounter for therapeutic drug level monitoring
CPT/HCPCS: 80048; 80061; 82306; 85027; 87799; 80197; 81003; 82043; 82570; 82728; 83036; 83540; 83550; 83970; 84100; 85025; 87497

== ENCOUNTER 2025-03-30 04:47 | Outpatient (CLI) | payer MEDICARE, MEDICAID, SELFPAY ==
[2025-03-30 08:50] LABS: HCT 48.0 % (40.0-50.0); HGB 15.1 g/dL (13.5-17.5); MCH 28.3 pg (27.0-33.0); MCHC 31.5 % (32.0-36.0); MCV 90 fL (80-95); MPV 9.7 fL (8.0-11.0); Platelet Count 258 10^3/uL (130-400); RBC 5.33 10^6/uL (4.36-5.78); RDW 13.2 % (11.8-14.1); RDW-SD 43.3 fL; WBC 8.34 10^3/uL (4.4-10.8)
[2025-03-30 09:02] LABS: Glucose Negative (Negative)
[2025-03-30 09:14] LABS: Anion Gap 8.9 mmol/L (3-11); BUN 15 mg/dL (7-18); CO2 28.1 mmol/L (21.0-32.0); Calcium 9.4 mg/dL (8.5-10.1); Chloride 105 mmol/L (98-107); Estimated GFR 92.84 (mL/min/1.73m2); Glucose 113 mg/dL (74-106); Potassium 3.6 mmol/L (3.5-5.1); Sodium 142 mmol/L (136-145)
[2025-03-30 09:14] LABS: C & S Indicated? No; RBC 0-2 HPF (0-2); WBC 0-2 HPF (0-5)
[2025-03-30 09:46] LABS: COMMENT (LAB VIEW ONLY) 201.84 mg/dL
[2025-03-30 09:47] LABS: Microalb ug/mg Crea 53.7 ug/mg Cr
== END 2025-03-30 04:48 | disposition home or self-care (01) ==
LOC: LBO 04:47
PROVIDERS: PCP Family Medicine; Visit Provider Internal Medicine Nephrology
DX: Z79.899 Other long term (current) drug therapy (principal); Z94.0 Kidney transplant status; Z51.81 Encounter for therapeutic drug level monitoring
CPT/HCPCS: 36415; 80048; 85027; 80197; 81003; 81015; 82043; 82570; 84100

== ENCOUNTER → 2025-03-31 10:55 | Outpatient (BNVA) | payer MEDICARE, MEDICAID, SELFPAY | PROVIDERS: PCP Family Medicine; Referring Provider Family Medicine; Visit Provider Physical Therapy Assistant | DX: Z12.11 Encounter for screening for malignant neoplasm of colon (principal) | CPT/HCPCS: S0285 ==

== ENCOUNTER 2025-04-16 09:11 | Day surgery (SDC) | payer MEDICARE, MEDICAID, SELFPAY ==
[2025-04-16 09:44] VITALS: BP 136/99; PULSE 89; RESP 16; TEMP 36.1; O2SAT 95
[2025-04-16] MEDS: Lactated Ringers 1,000 ML 80 ML IV (10:06)
[2025-04-16 12:22] VITALS: BMI 35.2
--- NOTE | 2025-04-16 12:22 | W.ANESPRE ---
General Info Date of Service Date Performed: 04/16/25 Height: 5 ft 9 in Weight: 108.409 kg Body Mass Index (BMI): 35.2 Surgical Procedure: Operation Date: 04/16/25 11:05 Proposed Procedure Side Surgeon jung Vargas MD Meds Allergies and Home Medications Allergies Allergy/AdvReac Type Severity Reaction Status Date / Time grapefruit Allergy Contraindic Unverified 04/16/25 09:36 ated Iodinated Contrast Media Allergy Contraindic Unverified 04/16/25 09:36 ated pomegranate Allergy Contraindic Unverified 04/16/25 09:36 ated Home Medication ?Medication ?Instructions ?Recorded prazosin 2 mg capsule 2 mg PO HS 02/14/21 tacrolimus 1 mg capsule, 0 mg PO BID 02/14/21 immediate-release diphenhydramine HCl 25 mg capsule 25 mg PO TID PRN 12/08/21 lactase 3,000 unit tablet (Lactaid) 6,000 unit PO TID PRN 12/08/21 lidocaine 5 % topical patch 1 patch transdermal PRN PRN 12/08/21 lorazepam 0.5 mg tablet 0.5 mg PO BID 12/31/22 lorazepam 1 mg tablet 1 mg PO BID 12/31/22 Blister packed meds at [facility] Not Applicable 03/04/23 quetiapine 100 mg tablet (Seroquel) 200 mg PO QHS 01/21/24 omeprazole 20 mg capsule,delayed 20 mg PO QAM #28 caps 08/10/24 release calcium 600 mg (as 1 tab PO DAILY #90 tabs 09/03/24 carbonate)-vitamin D3 10 mcg (400 unit) tablet (Calcium 600 + D(3)) cholecalciferol (vitamin D3) 25 See Rx Instructions .Route 09/03/24 mcg (1,000 unit) tablet .COMPLEX #28 tabs ferrous sulfate 325 mg (65 mg 325 mg PO DAILY #28 tabs 02/15/25 iron) tablet bisacodyl 5 mg tablet,delayed 5 mg PO ONCE #4 tabs 03/31/25 release (Dulcolax (bisacodyl)) citalopram 40 mg tablet 30 mg PO QAM 03/31/25 mycophenolate sodium 180 mg 540 mg PO BID 03/31/25 tablet,delayed release peg 3350-electrolytes 236 240 ml PO Q10M #4,000 mL 03/31/25 gram-22.74 gram-6.74 gram-5.86 gram solution (Golytely) citalopram 10 mg tablet mg 04/15/25 Current Visit Medications: Current Medications Generic Name Dose Route Start Last Admin Trade Name Freq PRN Reason Stop Dose Admin Ringer's Solution 1,000 mls @ 80 mls/hr 04/16/25 06:00 04/16/25 10:06 IV 04/16/25 23:59 80 mls/hr INFUSION SAMMIE Administration IV Miscellaneous Supplies 1 each 04/16/25 06:00 Iv Access IV 04/16/25 23:59 DIRECTED SAMMIE Sodium Chloride 0 ml 04/16/25 06:00 Normal Saline Flush 10 Ml Syr IV 04/16/25 23:59 PRN PRN Sodium Chloride 0 ml 04/16/25 06:00 Normal Saline 10 Ml Vial IJ 04/16/25 23:59 DIRECTED PRN Sterile Water 0 ml 04/16/25 06:00 Water,Injection,Sterile 10 Ml Vial IJ 04/16/25 23:59 DIRECTED PRN PFSH Active Problems Active Problems: Problem Status Onset Code Iron deficiency Acute E61.1 Hematochezia Acute K92.1 Regular astigmatism, bilateral Acute H52.223 Unspecified peripheral retinal degeneration Acute 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, unspecified Acute Q14.9 History of renal cell carcinoma Acute Z85.528 Shingles Acute B02.[address] scan, head Acute R93.0 Pain in penis Acute N48.89 Anal or rectal pain Acute K62.89 Foot pain Acute M79.673 Delusional thoughts Acute F22 Medical History Medical History Obesity GERD (gastroesophageal reflux disease) Seizure disorder 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 Surgical History Surgical History Kidney transplant recipient (~12/2008) History of Kidney Transplant Tobacco Smoking/Tobacco Use Status: Never Alcohol Alcohol Intake: former Substance Use Substance use type: does not use Vital Signs and Lab Results Vital Signs Most Recent Vital Signs in EMR: Most Recent Vital Signs Temp Pulse Resp BP Pulse Ox 36.1 C L 89 16 136/99 H 95 04/16/25 09:44 04/16/25 09:44 04/16/25 09:44 04/16/25 09:44 04/16/25 09:44 Lab Results Complete Blood Count: WBC, (4.4-10.8) 8.34 10^3/uL 03/30/25, 08:42 RBC, (4.36-5.78) 5.33 10^6/uL 03/30/25, 08:42 Hgb, (13.5-17.5) 15.1 g/dL 03/30/25, 08:42 Hct, (40.0-50.0) 48.0 % 03/30/25, 08:42 Plt Count, (130-400) 258 10^3/uL 03/30/25, 08:42 Complete Metabolic Panel: Sodium, (136-145) 142 mmol/L 03/30/25, 08:42 Potassium, (3.5-5.1) 3.6 mmol/L 03/30/25, 08:42 Chloride, (98-107) 105 mmol/L 03/30/25, 08:42 Carbon Dioxide, (21.0-32.0) 28.1 mmol/L 03/30/25, 08:42 BUN, (7-18) 15 mg/dL 03/30/25, 08:42 Creatinine, (0.70-1.30) 1.0 mg/dL 03/30/25, 08:42 Est GFR (CKD-EPI 2020), (mL/min/1.73m2) 92.84 03/30/25, 08:42 Calcium, (8.5-10.1) 9.4 mg/dL 03/30/25, 08:42 Glucose, (74-106) 113 mg/dL H 03/30/25, 08:42 Anesthesia Assessment and Plan Anesthesia History Personal History: No History of Anesthesia Complications Family History: No Family History of Anesthesia Complications Exercise Tolerance Exercise Tolerance: Metabolic Equivalents>4 Pertinent Negatives Pertinent Negatives: No Symptoms of GERD Cardiac & Pulmonary Exam Cardiac Exam: Normal S1/S2 Heart Sounds Pulmonary Exam: Clear Bilateral Breath Sounds Implantable Cardiac Device Does patient have a Pacemaker or an ICD?: No Airway Exam Known Difficult Airway: No Mallampati Class: 1 Mouth Opening: Normal (> 3cm) Thyromental Distance: Greater than 3 cm Neck Range of Motion: Full ROM Neck Circumference: Normal Teeth Condition: Generalized Poor Dentition ASA Classification ASA Score: ASA 2 Emergency Case?: No NPO Status NPO Status: NPO Clears >2 hours, Solids >8 hours Anesthesia Plan Resuscitation Status: Full Code Anesthesia Technique: General Anesthesia Airway Planned: Natural Airway Monitors Used: Standard Monitors
--- NOTE | 2025-04-16 13:28 | BOWEL_PTH ---
PATIENT: Judd Corey LOC: [facility] U#:[id number] AGE/SX: 50/M ROOM: RE04/16/[address]: Lam Vargas : 1975 BED: DIS: 04/16/2025 SPEC #: [id number] RECD: 04/16/25 15:38 STATUS: PATSY REQ #: [id number] LASHAWN: 04/16/25 13:[address]: Lam Vargas DEPT: Surgical Specimen RECD BY: Melba Juarez ENTERED: 04/16/25 15:39 SP TYPE: Bowel OTHR DR: Juan Ayers DO Tissues: 1 - BIOPSY BOWEL 2 - BIOPSY BOWEL 3 - BIOPSY BOWEL Procedures: GROSS AND MICRO LEVEL 4 Comments: [id number]
--- NOTE | 2025-04-16 13:38 | W.COLOREPORT ---
Date of service: 04/16/25 Time of Service: 13:38 Colonoscopy Report Procedure Description: PROCEDURES PERFORMED: 1. Colonoscopy with cold forceps polypectomy x4 PREOPERATIVE DIAGNOSIS: Screening colonoscopy POSTOPERATIVE DIAGNOSIS: Colorectal polyps SURGEON: Berlin Vargas MD INDICATION FOR PROCEDURE: the patient is a man with some disabilities who has state guardianship for making his medical decisions. Reportedly he has had some bright red blood per rectum, and also has iron deficiency anemia chronically. He has a history of renal transplant. FINDINGS: Normal terminal ileum. Polyps: Numerous polyps are present in the distal sigmoid and rectum. 4 different polyps were taken, all with cold forceps technique. The polyps range from 2-5 mm in size and are all flat. Clinically I suspect they are hyperplastic. There is no obvious diverticular disease anywhere. No obvious hemorrhoid disease. No inflammation anywhere or anything that would explain rectal bleeding. SURVEILLANCE interval/FOLLOW-UP: Pending path results on the polyps. If hyperplastic polyps, then repeat in 10 years. If these are adenomatous, then he should have a repeat flexible sigmoidoscopy to ablate the remaining other polyps that are there. They are all small and flat. SPECIMENS: Yes EBL: Minimal COMPLICATIONS: None QUALITY of prep: Excellent Procedure in detail: The patient's state guardian gave consent over the phoneand was in agreement with the indications, the potential risks as well as the benefits of the procedure. We then took the patient to the endoscopy suite and laid him in the left lateral decubitus position. A timeout was performed and anesthesia was administered which was tolerated well. I started the procedure. Digital rectal and visual examination was performed and grossly within normal limits. A well-lubricated flexible colonoscope was then introduced and passed without any notable difficulty all the way to the cecum identified by the ileocecal valve and the appendiceal orifice. The terminal ileum was briefly, superficially intubated and looked normal. The scope was then slowly withdrawn with the above-noted findings. The patient tolerated the procedure well and was taken to the PACU in hemodynamically stable condition.
--- NOTE | 2025-04-16 13:44 | W.PM.DSUDISC ---
Date of service: 04/16/25 Discharge Plan Disposition Patient Disposition: Home Condition: Good Discharge Details Attending Provider: Lam Vargas Primary Care Provider: Juan Ayers Home Meds and New Rx's Prescriptions: No Action lorazepam 1 mg tablet 1 mg PO BID Rx Instructions: Take one tablet @ 1 pm/8 pm lorazepam 0.5 mg tablet 0.5 mg PO BID Rx Instructions: May take prn dose if needed mycophenolate sodium 180 mg tablet,delayed release (DR/EC) 540 mg PO BID Rx Instructions: Take @ 8 am/8 pm 3 tabs 180 mg each quetiapine [Seroquel] 100 mg tablet 200 mg PO QHS bisacodyl [Dulcolax (bisacodyl)] 5 mg tablet,delayed release (DR/EC) 5 mg PO ONCE Qty: 4 0RF Rx Instructions: Take per colonoscopy instructions provided by ordering providers office peg 3350-electrolytes [Golytely] 236-22.74-6.74 -5.86 gram recon soln 240 ml PO Q10M Qty: 4000 0RF Rx Instructions: until fecal effluent is clear Blister packed meds at [facility] Not Applicable omeprazole 20 mg capsule,delayed release(DR/EC) 20 mg PO QAM Qty: 28 11RF cholecalciferol (vitamin D3) 25 mcg (1,000 unit) tablet See Rx Instructions .ROUTE .COMPLEX Qty: 28 11RF Dose Instruction: TAKE 1 TABLET BY MOUTH DAILY Rx Instructions: TAKE 1 TABLET BY MOUTH DAILY calcium carbonate-vitamin D3 [Calcium 600 + D(3)] 600 mg-10 mcg (400 unit) tablet 1 tab PO DAILY Qty: 90 3RF ferrous sulfate 325 mg (65 mg iron) tablet 325 mg PO DAILY Qty: 28 6RF tacrolimus 1 mg Capsule 0 mg PO BID Rx Instructions: TAKES 1 CAP QAM AND 2 CAPS QPM prazosin 2 mg Capsule 2 mg PO HS citalopram 40 mg tablet 30 mg PO QAM diphenhydramine HCl 25 mg Capsule 25 mg PO TID PRN lactase [Lactaid] 3,000 unit Tablet 6,000 unit PO TID PRN lidocaine 5 % Adhesive Patch,Medicated 1 patch transdermal PRN PRN citalopram 10 mg tablet Discharge Instructions Additional Instructions: FINDINGS: Some benign?appearing polyps were found and removed today. They are nothing to worry about. They would not explain why he has bleeding from time to time. Overall, nothing obvious was found which would explain rectal bleeding. Please discuss further with PCP at follow-up. Stand Alone Forms: Anesthesia Discharge Inst., Colonoscopy Post Instructions, Emilia Oconnor (DSU) Activity:: Activity as Tolerated Diet:: As Tolerated
[2025-04-16 13:49] VITALS: BP 122/87; PULSE 75; RESP 18; TEMP 36.1; O2SAT 95
--- NOTE | 2025-04-16 14:06 | W.ANESPOSTOP ---
Postoperative Evaluation Date, Time and Location Date Performed: 04/16/25 Time Performed: 13:55 Patient Location: Day Surgery Unit Vital Signs Most Recent Imported Vital Signs: Most Recent Vital Signs Temp Pulse Resp BP Pulse Ox 36.1 C L 75 18 122/87 95 04/16/25 13:49 04/16/25 13:49 04/16/25 13:49 04/16/25 13:49 04/16/25 13:49 Pain Score Most Recent Pain Score: Most Recent Pain Score Pain Level 0 04/16/25 13:49 Assessment Mental Status: Awake (Alert & Oriented to Patient Baseline) Airway and Respiratory Function: Patent airway with normal (patient baseline) respiratory exam Cardiovascular Function: Hemodynamically Stable Hydration Status: Adequately Hydrated Nausea & Vomiting: No Nausea or Vomiting Pain: Pt. Denies Any Pain Peripheral Nerve Block: Patient did not receive a nerve block
[2025-04-16 14:19] VITALS: BP 128/83; PULSE 73; RESP 18; TEMP 36.3; O2SAT 97
== END 2025-04-16 14:25 | disposition home or self-care (01) ==
PROVIDERS: PCP Family Medicine; Visit Provider Student in an Organized Health Care Education/Training Program
PROC: 0DJD8ZZ Inspection of Lower Intestinal Tract, Via Natural or Artificial Opening Endoscopic (ICD-10-PCS; CPT 45378; principal; 2025-04-16 11:00)
DX: Z12.11 Encounter for screening for malignant neoplasm of colon (principal); K63.5 Polyp of colon; K62.1 Rectal polyp
CPT/HCPCS: 45380; 88305; J2704

== ENCOUNTER 2025-05-20 12:05 | Emergency (ER) | payer MEDICARE, MEDICAID, SELFPAY ==
[2025-05-20 12:06] VITALS: BP 113/78; PULSE 92; RESP 20; TEMP 37.2; O2SAT 98
--- NOTE | 2025-05-20 12:15 | DI.CT_ITS ---
Exam(s) CT HEAD FACIAL WO EXAM: CT HEAD FACIAL WO CLINICAL HISTORY: confused, syncope. TECHNIQUE: Imaging Protocol: Axial computed tomography images with coronal and sagittal reformatted images were created and reviewed COMPARISON: CT CT HEAD WO from 12/08/2021 FINDINGS: BRAIN: There are no skull fractures nor fluid in the visualized paranasal sinuses. There is no evidence of intracranial hemorrhage, new mass effect, or shift of midline structures. 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 There also appear to be arachnoid cysts in the anterior aspect of both middle cranial fossae, just anterior to the temporal lobes. There is also previously described abnormal area of hypodensity in the anterior aspect of the left temporal lobe measuring approximately 1.5 x 1.3 x 1.6 cm, unchanged from 2022 but nevertheless not a normal finding. There is no abnormal hypodensity in the opposite-anterior right temporal lobe. MAXILLOFACIAL CT SCAN: Images are blurred by motion artifact There is no evidence of obvious facial fractures nor fluid in the visualized paranasal sinuses. No evidence of nasal bone fracture. There is no evidence of orbital blowout fracture. IMPRESSION: Multilevel findings in the brain as described individually above but unchanged from CT scan of 12/08/2021. Recommend follow-up contrast infused brain MRI. No evidence of obvious facial bone fractures nor orbital fractures, realizing that interpretation is somewhat limited by the amount of motion artifact here. Report called to ER physician 05/20/2025 at 3:02 p.m. RADIATION DOSE DELIVERED: 2,051.78mGy.cm Total DLP DATA REPOSITORY: All CT scans at this facility are submitted to the National Radiology Data Registry (NRDR) Dose Index Registry (DIR) with the [employer] ([employer]). RADIATION OPTIMIZATION: All CT scans at this facility use at least one of these dose optimization techniques: automated exposure control; mA and/or kV adjustment per patient size (includes targeted exams where dose is matched to clinical indication); or iterative reconstruction.
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
[2025-05-20 12:51] LABS: Abs Immature Grans 0.01 10^3/uL (0.0-0.06); HCT 42.9 % (40.0-50.0); HGB 14.2 g/dL (13.5-17.5); Immature Grans % 0.1 %; MCH 27.6 pg (27.0-33.0); MCHC 33.1 % (32.0-36.0); MCV 84 fL (80-95); MPV 9.8 fL (8.0-11.0); Platelet Count 261 10^3/uL (130-400); RBC 5.14 10^6/uL (4.36-5.78); RDW 13.2 % (11.8-14.1); RDW-SD 40.1 fL; WBC 8.82 10^3/uL (4.4-10.8)
[2025-05-20 13:20] LABS: ALT 26 U/L (16-63); AST 19 U/L (15-37); Albumin 3.9 g/dL (3.4-5.0); Alkaline Phosphatase 111 U/L (46-116); Anion Gap 11.6 mmol/L (3-11); BUN 20 mg/dL (7-18); Bilirubin, Total 0.9 mg/dL (0.2-1.0); CO2 22.4 mmol/L (21.0-32.0); Calcium 10.1 mg/dL (8.5-10.1); Chloride 105 mmol/L (98-107); Estimated GFR 74.60 (mL/min/1.73m2); Glucose 100 mg/dL (74-106); Potassium 3.9 mmol/L (3.5-5.1); Sodium 139 mmol/L (136-145); Total Protein 7.5 g/dL (6.4-8.2)
[2025-05-20 13:27] LABS: Procalcitonin < 0.10 ng/mL
[2025-05-20 13:58] LABS: COVID-19 PCR Negative (Negative); RSV PCR Negative (Negative)
[2025-05-20] MEDS: Normal Saline 1,000 ML 1000 ML IV (15:23)
[2025-05-20 15:27] VITALS: BP 113/78; PULSE 92; RESP 20; TEMP 37.2; O2SAT 98
[2025-05-20] MEDS: Ciprofloxacin 0.3% 2.5 ML BTL OU (18:13)
[2025-05-20 18:44] LABS: Glucose Negative (Negative)
[2025-05-20 18:53] LABS: RBC 0-2 HPF (0-2); WBC Negative HPF (0-5)
[2025-05-20 18:54] LABS: C & S Indicated? No
--- NOTE | 2025-05-20 19:32 | W.EDPROG ---
Date of service: 05/20/25 Time of Service: 19:32 Medical Decision Making Care was signed out by Dr. Sharp, please see his documentation regarding initial ED presentation course. Plan at signout was to follow-up on urinalysis. UA was reviewed and interpreted by me: No signs of infection. Patient stable. Plan for discharge with outpatient follow-up. Usual and customary discharge instructions reviewed with caretakers. Lab Data Lab results reviewed: Yes I reviewed the patient's lab results. Labs: Laboratory Tests Range/Units 05/20/25 05/20/25 05/20/25 12:45 12:50 18:37 WBC (4.4-10.8) 10^3/uL 8.82 RBC (4.36-5.78) 10^6/uL 5.14 Hgb (13.5-17.5) g/dL 14.2 Hct (40.0-50.0) % 42.9 MCV (80-95) fL 84 MCH (27.0-33.0) pg 27.6 MCHC (32.0-36.0) % 33.1 RDW (11.8-14.1) % 13.2 Plt Count (130-400) 10^3/uL 261 MPV (8.0-11.0) fL 9.8 Immature Gran % % 0.1 Neutrophils % % 65.7 Lymphocytes % % 20.6 Monocytes % % 12.1 Eosinophils % % 1.0 Basophils % % 0.5 Nucleated RBC % (0.0-0.3) % 0.0 Absolute Neutrophils (1.2-6.7) 10^3/uL 5.79 Absolute Lymphocytes (1.2-3.4) 10^3/uL 1.82 Absolute Monocytes (0.1-0.8) 10^3/uL 1.07 H Absolute Eosinophils (0.0-0.7) 10^3/uL 0.09 Absolute Basophils (0.0-0.2) 10^3/uL 0.04 VBG Lactate (<or=2.0) mmol/L 0.9 Sodium (136-145) mmol/L 139 Potassium (3.5-5.1) mmol/L 3.9 Chloride (98-107) mmol/L 105 Carbon Dioxide (21.0-32.0) mmol/L 22.4 Anion Gap (3-11) mmol/L 11.6 H BUN (7-18) mg/dL 20 H Creatinine (0.70-1.30) mg/dL 1.2 Est GFR (CKD-EPI 2020) (mL/min/1.73m2) 74.60 Glucose (74-106) mg/dL 100 Calcium (8.5-10.1) mg/dL 10.1 Total Bilirubin (0.2-1.0) mg/dL 0.9 AST (15-37) U/L 19 ALT (16-63) U/L 26 Alkaline Phosphatase (46-116) U/L 111 Total Protein (6.4-8.2) g/dL 7.5 Albumin (3.4-5.0) g/dL 3.9 Procalcitonin ng/mL < 0.10 Urine Color (Yellow) Yellow Urine Clarity (Clear) Clear Urine pH (5-8) 6.0 Ur Specific [place] (1.005-1.025) 1.020 Urine Protein (Neg-Trace) mg/dL 100 H Urine Ketones (Negative) mg/dL 15 H Urine Blood (Negative) Negative Urine Nitrite (Negative) Negative Urine Bilirubin (Negative) Small H Urine Urobilinogen (Up to 0.2) mg/dL 0.2 Ur Leukocyte Esterase (Negative) Negative Urine RBC (0-2) HPF 0-2 Urine WBC (0-5) HPF Negative Ur Epithelial Cells (Negative) HPF Negative Urine Crystals (Negative) HPF Negative Urine Bacteria (Negative) HPF Negative Urine Casts (Negative) LPF 0-2 Hyaline Urine Mucus (Negative) Heavy Ur Culture Indicated? No Urine Glucose (Negative) mg/dL Negative COVID-19 Source Nasopharynx SARS-CoV-2 (PCR) (Negative) Negative Influenza Type A (PCR) (Negative) Negative Influenza Type B (PCR) (Negative) Negative RSV (PCR) (Negative) Negative Discharge Plan Disposition Patient Disposition: Home Condition: Good Discharge Details Clinical Impression: Dehydration, Bilateral conjunctivitis Primary Care Provider: Juan Ayers ED Provider: Ismael Ovalle Home Meds and New Rx's Prescriptions: New ciprofloxacin HCl 0.3 % drops See Rx Instructions .ROUTE .COMPLEX Qty: 5 0RF Rx Instructions: put 1-2 drps in affected eye(s) every 2hr up to 8 times/day x2days; then 4 times/day x5days Continued lorazepam 1 mg tablet 1 mg PO BID Rx Instructions: Take one tablet @ 1 pm/8 pm lorazepam 0.5 mg tablet 0.5 mg PO BID Rx Instructions: May take prn dose if needed mycophenolate sodium 180 mg tablet,delayed release (DR/EC) 540 mg PO BID Rx Instructions: Take @ 8 am/8 pm 3 tabs 180 mg each quetiapine [Seroquel] 100 mg tablet 200 mg PO QHS bisacodyl [Dulcolax (bisacodyl)] 5 mg tablet,delayed release (DR/EC) 5 mg PO ONCE Qty: 4 0RF Rx Instructions: Take per colonoscopy instructions provided by ordering providers office Blister packed meds at [facility] Not Applicable omeprazole 20 mg capsule,delayed release(DR/EC) 20 mg PO QAM Qty: 28 11RF cholecalciferol (vitamin D3) 25 mcg (1,000 unit) tablet See Rx Instructions .ROUTE .COMPLEX Qty: 28 11RF Dose Instruction: TAKE 1 TABLET BY MOUTH DAILY Rx Instructions: TAKE 1 TABLET BY MOUTH DAILY calcium carbonate-vitamin D3 [Calcium 600 + D(3)] 600 mg-10 mcg (400 unit) tablet 1 tab PO DAILY Qty: 90 3RF ferrous sulfate 325 mg (65 mg iron) tablet 325 mg PO DAILY Qty: 28 6RF tacrolimus 1 mg Capsule 1 mg PO BID Rx Instructions: TAKES 1 CAP QAM AND 2 CAPS QPM prazosin 2 mg Capsule 2 mg PO HS citalopram 40 mg tablet 30 mg PO QAM diphenhydramine HCl 25 mg Capsule 25 mg PO TID PRN lactase [Lactaid] 3,000 unit Tablet 6,000 unit PO TID PRN lidocaine 5 % Adhesive Patch,Medicated 1 patch transdermal PRN PRN Discharge Instructions Instructions: Dehydration, Adult ED, Conjunctivitis ([facility]) ED Additional Instructions: At this time your workup has returned very reassuring. There is no evidence of significant infection, electrolyte abnormality, COVID for flu or RSV infection. At this time you have evidence of conjunctivitis. This is likely viral but may have transitioned into a bacterial infection in the eyes. Please use the antibiotic drops. Apply 1 to 2 drops in each eye every 4-6 hours for the next 7 days. Please drink plenty of fluids and stay well-hydrated. If you notice any worsening of your symptoms, or any new symptoms such as vomiting, diarrhea, fever, chills, shortness of breath, chest pain, numbness, weakness, or fainting , please return immediately to the emergency department for reevaluation. Please follow up with your primary care provider as soon as possible for reassessment and reevaluation. As always, it was a pleasure participating in your medical care today. Referrals: Juan Ayers DO [Primary Care Provider, Medicine]
== END 2025-05-20 19:52 | disposition home or self-care (01) ==
PROVIDERS: Student in an Organized Health Care Education/Training Program; Emergency Provider Student in an Organized Health Care Education/Training Program; PCP Family Medicine
DX: H10.023 Other mucopurulent conjunctivitis, bilateral (principal); E86.0 Dehydration; R41.82 Altered mental status, unspecified
CPT/HCPCS: 00123; 36415; 80053; 84145; 87637; 96360; 96361; 99285; 70450; 70486; 81003; 81015; 83605; 85025; 99284

== ENCOUNTER 2025-08-17 01:31 | Outpatient (CLI) | payer MEDICARE, MEDICAID, SELFPAY ==
[2025-08-17 08:30] LABS: HCT 44.6 % (40.0-50.0); HGB 14.1 g/dL (13.5-17.5); MCH 27.8 pg (27.0-33.0); MCHC 31.6 % (32.0-36.0); MCV 88 fL (80-95); MPV 9.7 fL (8.0-11.0); Platelet Count 266 10^3/uL (130-400); RBC 5.07 10^6/uL (4.36-5.78); RDW 13.9 % (11.8-14.1); RDW-SD 44.7 fL; WBC 6.21 10^3/uL (4.4-10.8)
[2025-08-17 08:32] LABS: Glucose Negative (Negative)
[2025-08-17 09:28] LABS: Anion Gap 7.1 mmol/L (3-11); BUN 13 mg/dL (9-23); CO2 27.9 mmol/L (20.0-31.0); Calcium 9.4 mg/dL (8.3-10.6); Chloride 107 mmol/L (98-107); Glucose 89 mg/dL (74-106); Potassium 4.2 mmol/L (3.5-5.1); Sodium 142 mmol/L (136-145)
[2025-08-17 09:29] LABS: Microalb ug/mg Crea 45.8 ug/mg Cr
== END 2025-08-17 01:32 | disposition home or self-care (01) ==
LOC: LBO 01:31
PROVIDERS: PCP Family Medicine; Visit Provider Internal Medicine Nephrology
DX: Z94.0 Kidney transplant status (principal); Z51.81 Encounter for therapeutic drug level monitoring; Z79.899 Other long term (current) drug therapy
CPT/HCPCS: 36415; 80048; 85027; 80197; 81003; 82043; 82570; 84100